=== PATIENT | male | born 1970 | race Caucasian/White ===

== ENCOUNTER 2018-09-11 10:44 | Inpatient (IN) | payer MEDICAID ==
[~2018-09-11 10:44] MED LIST: Levofloxacin 500mg/100mL 500 MG/100 ML BAG IV SCH
[2018-09-11] MEDS ORDERED: Ciprofloxacin 400mg Premix PB 400 MG/200 ML BAG IV ONE ×2 (11:28→11:49)
[2018-09-11 11:59] LABS: HEMATOCRIT 53.8 % (41.0-60); HEMOGLOBIN 17.7 gm/dL (12-16); MEAN CELL VOLUME 84.3 fl (80-99); MEAN CORPUSCULAR HEMOGLOBIN 27.6 pg (26.0-30.0); MEAN CORPUSCULAR HGB CONC 32.8 pg (28.0-36.0); MEAN PLATELET VOLUME 8.4 fl; PLATELET COUNT 203 Th/cmm (150-400); RED BLOOD COUNT 6.39 Mil/cmm (4.30-5.70); RED CELL DISTRIBUTION WIDTH 16.3 % (11.5-20.0); WHITE BLOOD COUNT 11.4 Th/cmm (4.8-10.8)
[2018-09-11 12:01] LABS: URINE SOURCE CATH
[2018-09-11 12:03] LABS: URINE BILIRUBIN NEGATIVE (NEGATIVE); URINE BLOOD LARGE (NEGATIVE); URINE GLUCOSE (UA) NEGATIVE (NEGATIVE); URINE KETONE NEGATIVE (NEGATIVE); URINE LEUKOCYTE ESTERASE LARGE (NEGATIVE); URINE MICROSCOPIC INDICATED? YES; URINE NITRATE POSITIVE (NEGATIVE); URINE PH 8.5 (4.6 - 8.0); URINE PROTEIN >=300 mg/dL (NEGATIVE); URINE UROBILINOGEN 0.2 E.U./dL (0.2 - 1.0)
[2018-09-11 12:13] LABS: URINE COLOR YELLOW
[2018-09-11 12:14] LABS: ANION GAP 13.8 (7.0-16.0); CALCIUM SERUM 10.9 mg/dL (8.6-10.3); CARBON DIOXIDE 19.9 mEq/L (21.0-31.0); CREATININE - SERUM 2.1 mg/dL (0.7-1.3); GFR AFRICAN-AMERICAN 43.2 ml/min (>90); GFR NON AFRICAN-AMERICAN 35.7 ml/min; POTASSIUM SERUM 4.7 mEq/L (3.5-5.1)
[2018-09-11 12:14] LABS: URINE CLARITY CLOUDY (CLEAR)
[2018-09-11 12:15] LABS: URINE RBC 0-2 /hpf (0-5)
[2018-09-11 12:16] LABS: URINE BACTERIA MANY /hpf (NONE SEEN); URINE EPITHELIAL CELLS NONE SEEN /lpf (FEW)
[2018-09-11] MEDS ORDERED: Lactated Ringer 1,000 ML IV ONE (12:57)
[2018-09-11 13:07] LABS: BAND NEUTROPHILE 0 % (0-10); EOSINOPHIL 1 % (0-5); LYMPHOCYTE 10 % (20-50); MONOCYTE 5 % (2-10); NEUTROPHILS 84 % (40-80)
--- NOTE | 2018-09-11 13:16 | ED Physician Chart ---
ED Chief Complaint/HPI - Patient Information Date Seen:: 09/11/18 Time Seen:: 10:57 Chief Complaint:: suprapubic tube not working History of Present Illness:: suprapubic tube not working since last night. patient is writhing in pain (even though he doesn't communicate alot). When I pressed on his lower abdomen, he nodded and verbalized yes to pain. H/o multi-resistant UTI's. Allergies:: Allergies Allergy/AdvReac Type Severity Reaction Status Date / Time No Known Allergies Allergy Verified 09/11/18 10:57 Vitals:: Vital Signs - 8 hr 09/11/18 09/11/18 10:57 12:46 Temp 98.5 F HR 101 98 RR 18 16 BP 115/98 126/75 O2 Sat % 98 97 Historian:: Medical Records Review:: Nurse's Note Reviewed, Transfer documents Reviewed ED Review of Systems - Review of Systems General/Constitutional: No fever, No chills, No weight loss, No weakness, No diaphoresis, No edema, No loss of appetite Skin: Other (stage I decubitus (sacral)) Head: No headache, No light-headedness Eyes: No loss of vision, No pain, No diplopia ENT: No earache, No nasal drainage, No sore throat, No tinnitus Neck: No neck pain, No swelling, No thyromegaly, No stiffness, No mass noted Cardio Vascular: No chest pain, No palpitations, No PND, No orthopnea, No edema Pulmonary: No SOB, No cough, No sputum, No wheezing GI: No nausea, No vomiting, No diarrhea, No pain, No melena, No hematochezia, No constipation, No hematemesis G/U: Other (urinary retention from a non-functioning suprapubic tube) Musculoskeletal: No bone or joint pain, No back pain, No muscle pain Endocrine: Polyuria Psychiatric: No prior psych history, No depression, No anxiety, No suicidal ideation Hematopoietic: No bruising, No lymphadenopathy Allergic/Immuno: No urticaria, No angioedema Neurological: No syncope, No focal symptoms, No weakness, No paresthesia, No headache, No seizure, No dizziness, No confusion, No vertigo ED Past Medical History - Past Medical History Obtainable: No Past Medical History: HTN, CHF, CVA/TIA, Dyslipidemia, PUD/GERD, Other (BPH; dysphagia; hemiplegia; chronic kidney disease; anemia; atrial fibrillation; subarachnoid hemorrhage) Family Medical History - Family Member Mother History Unknown: Yes ED Physical Exam - Physical Examination General/Constitutional: Awake, Well-developed, well-nourished, Non-toxic appearing Other Gen/Cons comments:: overweight Eyes: Lids, conjuctiva normal, PERRL, EOMI Other Skin comments:: stage I sacral decubitus ENMT: External ears, nose nl Neck: Nontender, No nuchal rigidity Respiratory: Nl effort/Exclusion, Clear to Auscultation, No Wheeze/Rhonchi/Rales Cardio Vascular: No murmur, gallop, rubs Other Cardio Vascular comments:: irregularly irregular Other GI comments:: tenderness in the lower abdomen with palpation. resolved after replacement of the suprapubic tube. Extremities: No tenderness or effusion Neuro/Psych: Mood normal Other Neuro/Psych comments:: left sided weakness Other Misc comments:: stage I sa ED Labs/Radiology/EKG Results - Lab Results Results: Laboratory Tests 09/11/18 09/11/18 09/11/18 11:25 11:40 11:40 WBC 11.4 H RBC 6.39 H Hgb 17.7 Hct 53.8 MCV 84.3 MCH 27.6 MCHC Differential 32.8 RDW 16.3 Plt Count 203 MPV 8.4 Add Manual Diff YES Band Neutrophils % 0 Neutrophils (Manual) 84 H Lymphocytes 10 L Monocytes 5 Eosinophils 1 Sodium 136 Potassium 4.7 Chloride 107 Carbon Dioxide 19.9 L Anion Gap 13.8 BUN 31 H Creatinine 2.1 H Est GFR ( Amer) 43.2 Est GFR (Non-Af Amer) 35.7 BUN/Creatinine Ratio 14.8 Glucose 121 H Calcium 10.9 H Urine Source CATH Urine Color YELLOW Urine Clarity CLOUDY Urine pH 8.5 Ur Specific Dickson 1.015 Urine Protein >=300 Urine Glucose (UA) NEGATIVE Urine Ketones NEGATIVE Urine Blood LARGE H Urine Nitrate POSITIVE H Urine Bilirubin NEGATIVE Urine Urobilinogen 0.2 Ur Leukocyte Esterase LARGE H Urine RBC 0-2 H Urine WBC 10-25 H Ur Epithelial Cells NONE SEEN Urine Bacteria MANY H ED Assessment - Assessment General Assessment: EKG from 11:37:34 a.m.: atrial fibrillation, flipped t wave in I, AVL, V5 and V6. - Procedures Procedures:: Replacement of suprapubic tube with a 16 azeri maria. Replaced without any complications after betadine prep. Patient said "no pain" after the suprapubic tube was replaced. 300 cc of putrid , pus-like urine came out onto bed under pressure before suprapubic tube was replaced and a subsequent 600 cc amount of urine came out. ED Septic Shock - . Is Septic Shock (SBP<90, OR Lactate>4 mmol\\L) present?: No - <6hrs of presentation: Vital Signs: Vital Signs - 8 hr 09/11/18 09/11/18 10:57 12:46 Temp 98.5 F HR 101 98 RR 18 16 BP 115/98 126/75 O2 Sat % 98 97 ED Reassessment (Disposition) - Reassessment Reassessment Condition:: Improved - Diagnosis Diagnosis:: Urinary retention from a clogged off suprapubic tube which was changed by ER Kori ESBL positive urine Multi-resistant UTI which looks more like pus than urine Chronic kidney disease with worsening BUN and creatinine most probably secondary to above Leukocytosis Atrial fibrillation Congestive heart failure history HTN Subarachnoid hemorrhage BPH Hyperlipidemia GERD Dysphagia Hemiplegia CVA - Patient Disposition Discharge/Transfer:: Acute Care w/in this hosp Admitted to:: Telemetry Condition at Disposition:: Stable, Improved
[2018-09-11] MEDS ORDERED: Piperacillin Sodium/Tazobact 3.375 gm Vial IV ONE (14:04)
[2018-09-11] MEDS ORDERED: Sodium Chloride 0.9% 1,000 ML IV ONE (14:07)
[2018-09-11] MEDS ORDERED: D5-0.45NS 1,000 ML IV SCH ×2 (16:08→18:15)
[2018-09-11] MEDS ORDERED: Piperacillin Sodium/Tazobact 2.25 gm Vial IV ONE (17:19)
--- NOTE | 2018-09-11 22:56 | History & Physical ---
ADMIT DATE: 09/11/2018 HISTORY OF PRESENT ILLNESS: This 48-year-old male was seen and examined at the courtesy of Dr. Harry. The patient was transferred here from the [facility] home [facility] subacute. He was evaluated in the Emergency Room and then admitted. The patient was apparently confused. He has history of multiple problems. 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 Also found to have urinary tract infection. Apparently, there is no history of diabetes. No chest pains. No history of PND, no history of orthopnea, no history of cough, no history of fever, no history of hemoptysis, no history of abdominal pain, bilateral lower back pain. No rigidity, no guarding and no organomegaly. Bowel sounds normal. No hematuria. PHYSICAL EXAMINATION: VITAL SIGNS: Heart rate was 84, blood pressure was 119/68, temperature 98.2, respirations 18, O2 saturation 96%. SKIN: Normal. HEAD: Normocephalic. EYES: Conjunctivae pink. There is no icterus in the eyes. Pupils reacting to light. NECK: There is no increased jugular venous distention, no thyromegaly, no lymphadenopathy. Carotids equal both sides. CHEST: Bilaterally symmetrical, moved well with respiration. Respiratory movements equal both sides. Trachea is central. There is note to percussion. Breath sound, few scattered rales. CARDIOVASCULAR SYSTEM: PMI not well localized, there is no positional thrill. No parasternal heave. S1 normal, S2 physiologic. There was no S3, no rub. ABDOMEN: Soft, no tenderness, no rigidity, no guarding and no organomegaly. Bowel sounds normal. EXTREMITIES: There is no calf tenderness. LABORATORY DATA: WBC count was 11.4, RBC 6.39, hemoglobin 17.7, hematocrit 53.8, platelet count was 203. Neutrophils 84%. Sodium 136, potassium 4.7, chloride 107, carbon dioxide 19.9, BUN 31, creatinine 2.1, GFR about 35.7, glucose 121, calcium 10.9. Urine showed urinary produce more than 300, urine blood large, urine nitrite was positive. Leukocyte esterase large, WBC was 10-25. EKG shows atrial fibrillation with moderate ventricular response. IMPRESSION: Atrial fibrillation with moderate ventricular response, history of hypertension, urinary tract infection, chronic kidney disease, nephropathy, confusion, BPH, old cerebrovascular accident with hemiparesis, decubitus ulcers on bilateral buttocks. We will suggest to continue present management, antibiotic as per PMD. We will get echocardiogram to evaluate left ventricular function and valvular structure. We will also get lipid profile. In the meantime, we will put him on his Eliquis as he was taking before. Also put him on Lipitor. The patient has history of hypertension and strokes. Lipid profile in a.m. BMP, BNP in a.m. and CBC. We will follow with you as needed. JOB# [id number]
[2018-09-12] MEDS ORDERED: Piperacillin Sodium/Tazobact 2.25 gm Vial IV ONE ×2 (00:07→05:53)
[2018-09-12 05:12] LABS: CHOLESTEROL 100 mg/dL (<200); HDL -HIGH DENSITY LIPOPROTEIN 34 mg/dL (23-92); TRIGLYCERIDES 84 mg/dL (<150)
[2018-09-12 07:36] LABS: % BASOPHILS 1.2 % (0.0-2.0); % EOSINOPHILS 3.1 % (0.0-5.0); % LYMPHOCYTES 24.4 % (20.0-50.0); % MONOCYTES 7.7 % (2.0-10.0); % NEUTROPHILS 63.6 % (40.0-80.0); BASOPHILE ABSOLUTE 0.1 Th/cumm (0-0.2); EOSINOPHILE ABSOLUTE 0.2 Th/cmm (0.1-0.4); HEMATOCRIT 48.1 % (41.0-60); HEMOGLOBIN 16.1 gm/dL (12-16); LYMPHOCYTE ABSOLUTE 1.8 Th/cmm (1.5-3.0); MEAN CELL VOLUME 84.3 fl (80-99); MEAN CORPUSCULAR HEMOGLOBIN 28.2 pg (26.0-30.0); MEAN CORPUSCULAR HGB CONC 33.4 pg (28.0-36.0); MEAN PLATELET VOLUME 9.4 fl; MONOCYTE ABSOLUTE 0.6 Th/cmm (0.3-1.0); NEUTROPHILE ABSOLUTE 4.7 Th/cmm (1.8-8.0); PLATELET COUNT 168 Th/cmm (150-400); RED CELL DISTRIBUTION WIDTH 16.5 % (11.5-20.0); WHITE BLOOD COUNT 7.4 Th/cmm (4.8-10.8)
[2018-09-12 07:47] LABS: ANION GAP 15.1 (7.0-16.0); CALCIUM SERUM 10.3 mg/dL (8.6-10.3); CARBON DIOXIDE 20.2 mEq/L (21.0-31.0); CREATININE - SERUM 1.9 mg/dL (0.7-1.3); GFR AFRICAN-AMERICAN 48.5 ml/min (>90); GFR NON AFRICAN-AMERICAN 40.1 ml/min; POTASSIUM SERUM 4.3 mEq/L (3.5-5.1)
[2018-09-12] MEDS ORDERED: Non-Formulary Item 1 EA (Apixaban [Eliquis] 2.5 MG) PO SCH (09:00)
[2018-09-12] MEDS: Atorvastatin Calcium 10 MG TAB PO SCH (09:46)
--- NOTE | 2018-09-12 11:57 | History & Physical ---
ADMIT DATE: HISTORY OF PRESENT ILLNESS: The patient came to the Emergency Room complaining of severe suprapubic pain. The patient has a suprapubic catheter, was found to have a severe UTI and the patient was admitted. The patient is known to have a history of CHF, history of atrial fibrillation, history of CVA, history of GERD, history of BPH and acute and chronic kidney disease and atrial fibrillation, history of subarachnoid hemorrhage. The patient was given antibiotics, was admitted. The patient complaining of suprapubic pain as otherwise complaining of no chest pain, no abdominal pain, no bruising. REVIEW OF SYSTEMS: Negative. PAST MEDICAL HISTORY: Hypertension, CVA, history of congestive heart failure, hyperlipidemia, peptic ulcer disease, BPH, dysphagia, chronic kidney disease, anemia, atrial fibrillation, subarachnoid hemorrhage. PHYSICAL EXAMINATION: GENERAL: The patient on examination was awake, alert. VITAL SIGNS: Stable. HEAD: Normal. ENT: Normal. LUNGS: Bilaterally clear. CARDIOVASCULAR SYSTEM: S1, S2 heard. ABDOMEN: Soft. No suprapubic catheter noted. LABORATORY DATA: White count was 11.4, slightly elevated and his urine ____ was positive, and large leukocyte esterase was positive, WBC was positive evidence of urinary infection. The patient #1 dislodged, clogged suprapubic catheter, urinary retention, acute urinary infection, ESBL positive, multidrug resistant UTI and increasing BUN and creatinine, acute on chronic kidney disease, leukocytosis, atrial fibrillation, history of congestive heart failure, history of hypertension, history of CVA in the past, history of hyperlipidemia, history of BPH, anemia, atrial fibrillation, history of subarachnoid hemorrhage. The patient is going to be admitted and I will follow giving IV antibiotic. Dr. Streeter will see the patient for ID and Cardiology, Dr. Bob Streeter and will follow the patient. JOB# [id number]
[2018-09-12] MEDS ORDERED: D5-0.45NS 1,000 ML IV SCH (14:15)
[2018-09-12] MEDS: Hydrocodone/APAP 5mg/325mg Tab PO PRN (21:49)
--- NOTE | 2018-09-13 00:59 | Consultation ---
DATE OF CONSULTATION: 09/12/2018 ATTENDING PHYSICIAN: Dr. Sandra Harry. MET[employer] SUPERVISOR: Dr. Popeye Chilel. REASON FOR CONSULTATION: Worsening kidney function, electrolyte imbalance, and fluid management. HISTORY OF PRESENT ILLNESS: This is a 48-year-old male with past medical history of chronic kidney disease, who came in because of lower abdominal pain. A few hours prior to admission, the patient complained of worsening lower abdominal pain. He could no longer tolerate this and patient was brought to the Emergency Room. His white count was 11.4 with a temperature of 98.5 degrees. The ED physician replaced his suprapubic tube. Pus came out after the old SPT was removed. Then, 600 mL of urine came out. The pain was then relieved with new SPT. His urinalysis was suggestive of a UTI. Three weeks prior to admission, the patient had labs drawn, which revealed a BUN/creatinine of 27/1.69. He was admitted at this time with the BUN/creatinine of 31/2.1. He has no history of nausea and vomiting as well as diarrhea. PAST MEDICAL HISTORY: 1. Chronic kidney disease. 2. Status post ESBL Escherichia coli complicated urinary tract infection. 3. Essential hypertension. 4. Coronary artery disease. 5. Anemia of chronic disease. 6. Nontraumatic subarachnoid hemorrhage. 7. BPH. 8. Dyslipidemia. 9. GERD. 10. Dysphagia. 11. Status post CVA with hemiplegia and paresis. 12. Urinary retention secondary to BPH. 13. Chronic atrial fibrillation. PAST SURGICAL HISTORY: Status post SPT. CURRENT MEDICATIONS: He is now on acetaminophen, amlodipine, atorvastatin, bisacodyl, metoprolol, rivaroxaban, Zosyn. ALLERGIES: No known drug allergies. SOCIAL AND FAMILY HISTORY: I was not able to obtain from the patient because of difficulty communicating with him. REVIEW OF SYSTEMS: Again, I was not able to decipher directly from the patient because of the same reason. PHYSICAL EXAMINATION: GENERAL: The patient is awake, slightly agitated, not in distress. VITAL SIGNS: Blood pressure is 143/103, pulse 93, temperature 99.3 degrees. SKIN: Poor turgor, warm, no rash, no jaundice appreciated. He has a large nevus on his right arm. HEENT: Head normocephalic, atraumatic. Eyes: Extraocular muscles intact. Pupils equal, round, reactive to light and accommodates. Anicteric sclerae. Pale conjunctivae. Nose, midline nasal septum. Mouth: Dry mucosa. Poor dentition. NECK: Supple, no adenopathy, no thyromegaly, no bruits. Trachea palpated in the midline. CHEST AND CARDIOVASCULAR: S1, S2. No rub, murmur, or gallop appreciated. Point of maximal impulse fifth intercostal space, left midclavicular line. No abdominal or femoral bruits appreciated. LUNGS: Equal expansion, minimal use of accessory muscles. No supraclavicular retraction. Scattered coarse rhonchi, but no rales nor wheezes appreciated. ABDOMEN: Globular, soft, positive for bowel sounds. No bruits either diastolic or systolic, presence of right lower quadrant suprapubic tube without any drainage. No discharge or bleed. RECTAL: The patient refused. GENITOURINARY: Normal appearing male genitalia. MUSCULOSKELETAL: No effusions present in his joints, but unable to assess his range of motion. EXTREMITIES: No evidence of any edema, cyanosis nor clubbing with palpable femoral, popliteal, and dorsalis pedis pulses. NEUROLOGIC: The patient is alert, verbal, motor is 5/5. Cranial nerves 2-12 intact. Sensory intact. LABORATORY DATA AND STUDIES: Labs did reveal white count 7.4, hemoglobin 16.1, hematocrit 48.1, platelets 168. Sodium 141, potassium 4.3, chloride 110, bicarb 20.2, BUN 31, creatinine 1.9, glucose 85. BNP 40. IMPRESSION: 1. Acute kidney injury on chronic kidney disease, MDRD GFR of 35.7 mL per minute, stage 3. The patient has had a history of hypertension for several years, which could have given rise to hypertensive nephrosclerosis and the cause of his chronic kidney disease. Acute component is likely due to ongoing urinary retention, which was relieved by removing the old suprapubic tube with copious amount of pus. The patient also has recurring interstitial nephritis, which could eventually cause damage giving rise to chronic interstitial nephritis. 2. Abdominal pain secondary to occluded SVT. 3. Recurrent complicated urinary tract infection secondary to ongoing urinary retention and a foreign objects such as SVT. 4. Status post ESBL Escherichia coli complicated urinary tract infection. 5. Essential hypertension with chronic kidney disease. 6. Coronary artery disease. 7. Anemia of chronic disease. 8. Nontraumatic subarachnoid hemorrhage. 9. Benign prostatic hypertrophy. 10. Dyslipidemia. 11. Dysphagia. 12. Status post cerebrovascular accident with hemiplegia and possible paresis. 13. Urinary retention secondary to benign prostatic hypertrophy 14. Chronic atrial fibrillation. PLAN: 1. Continue with IV hydration. 2. Request for renal ultrasound. 3. Follow up cultures and appropriate antibiotics. 4. Urine sodium, eosinophils, and creatinine. 5. Urine microalbumin to creatinine ratio. 6. Follow up electrolytes. 7. Increase BP meds due to elevated blood pressure. Thank you, Dr. Harry, for this consult. We will follow the patient closely with you. JOB# [id number]
[2018-09-13 04:53] LABS: % EOSINOPHILS 4.3 % (0.0-5.0); % LYMPHOCYTES 33.8 % (20.0-50.0); % NEUTROPHILS 52.9 % (40.0-80.0); BASOPHILE ABSOLUTE 0.1 Th/cumm (0-0.2); EOSINOPHILE ABSOLUTE 0.3 Th/cmm (0.1-0.4); HEMATOCRIT 47.9 % (41.0-60); HEMOGLOBIN 16.1 gm/dL (12-16); LYMPHOCYTE ABSOLUTE 2.1 Th/cmm (1.5-3.0); MEAN CELL VOLUME 83.8 fl (80-99); MEAN CORPUSCULAR HEMOGLOBIN 28.3 pg (26.0-30.0); MEAN CORPUSCULAR HGB CONC 33.7 pg (28.0-36.0); MEAN PLATELET VOLUME 8.3 fl; MONOCYTE ABSOLUTE 0.5 Th/cmm (0.3-1.0); NEUTROPHILE ABSOLUTE 3.2 Th/cmm (1.8-8.0); PLATELET COUNT 183 Th/cmm (150-400); RED BLOOD COUNT 5.71 Mil/cmm (4.30-5.70); RED CELL DISTRIBUTION WIDTH 15.8 % (11.5-20.0); WHITE BLOOD COUNT 6.2 Th/cmm (4.8-10.8)
[2018-09-13 05:06] LABS: ALB/GLOB RATIO 1.1 (1.0-1.8); ALBUMIN 3.4 gm/dL (4.2-5.5); ANION GAP 10.7 (7.0-16.0); BILIRUBIN,TOTAL 1.2 mg/dL (0.3-1.0); CALCIUM SERUM 10.3 mg/dL (8.6-10.3); CARBON DIOXIDE 23.5 mEq/L (21.0-31.0); CREATININE - SERUM 1.7 mg/dL (0.7-1.3); GFR AFRICAN-AMERICAN 55.1 ml/min (>90); GFR NON AFRICAN-AMERICAN 45.6 ml/min; MAGNESIUM 2.1 mg/dL (1.9-2.7); PHOSPHOROUS 2.7 mg/dL (2.5-5.0); POTASSIUM SERUM 4.2 mEq/L (3.5-5.1); TOTAL PROTEIN,SERUM 6.5 gm/dL (6.0-8.3)
[2018-09-13 06:17] LABS: EOSINOPHIL SMEAR SOURCE URINE
[2018-09-13 06:18] LABS: EOSINOPHILS SMEAR COUNT NONE SEEN (NONE SEEN)
[2018-09-13] MEDS: Hydrocodone/APAP 5mg/325mg Tab PO PRN (06:37)
[2018-09-13] MEDS: Atorvastatin Calcium 10 MG TAB PO SCH (08:09)
--- NOTE | 2018-09-13 08:17 | Diagnostic Imaging Report ---
Renal ultrasound HISTORY: Acute on chronic renal failure COMPARISON: None Technique: Sonography of the kidneys and urinary bladder was performed in multiple planes. FINDINGS: Exam is limited due to body habitus and bowel gas. The right kidney measures 9.5 x 5.0 cm. The left kidney measures 10.5 x 5.4 cm. The renal margins are poorly defined limiting assessment for focal lesions. No hydronephrosis. Elevated postvoid residual bowel wall edema 86 mL is noted. Urinary bladder wall thickening is noted measuring up to 8 mm. IMPRESSION: Limited exam due to body habitus and bowel gas. No evidence of hydronephrosis. Elevated post void residual bladder volumes 86 mL. There is also urinary bladder wall thickening. Please correlate clinically for infectious/inflammatory process or bladder outlet obstruction.
--- NOTE | 2018-09-13 12:09 | Infectious Disease Prog Note ---
Infectious Disease Subjective - Review of Systems Service Date: 09/13/18 Subjective: There is no new change, no fever. Infectious Disease Objective - Results Result Diagrams: 09/13/18 04:15 09/13/18 04:15 Recent Labs: Laboratory Last Values WBC 6.2 Th/cmm (4.8-10.8) 09/13/18 04:15 RBC 5.71 Mil/cmm (4.30-5.70) H 09/13/18 04:15 Hgb 16.1 gm/dL (12-16) 09/13/18 04:15 Hct 47.9 % (41.0-60) 09/13/18 04:15 MCV 83.8 fl (80-99) 09/13/18 04:15 MCH 28.3 pg (26.0-30.0) 09/13/18 04:15 MCHC Differential 33.7 pg (28.0-36.0) 09/13/18 04:15 RDW 15.8 % (11.5-20.0) 09/13/18 04:15 Plt Count 183 Th/cmm (150-400) 09/13/18 04:15 MPV 8.3 fl 09/13/18 04:15 Add Manual Diff YES 09/11/18 11:40 Neutrophils % 52.9 % (40.0-80.0) 09/13/18 04:15 Band Neutrophils % 0 % (0-10) 09/11/18 11:40 Lymphocytes % 33.8 % (20.0-50.0) 09/13/18 04:15 Monocytes % 8.0 % (2.0-10.0) 09/13/18 04:15 Eosinophils % 4.3 % (0.0-5.0) 09/13/18 04:15 Basophils % 1.0 % (0.0-2.0) 09/13/18 04:15 Neutrophils (Manual) 84 % (40-80) H 09/11/18 11:40 Lymphocytes 10 % (20-50) L 09/11/18 11:40 Monocytes 5 % (2-10) 09/11/18 11:40 Eosinophils 1 % (0-5) 09/11/18 11:40 Eos Smear Source URINE 09/13/18 00:15 Eos Smear Total Cells NONE SEEN (NONE SEEN) 09/13/18 00:15 Sodium 139 mEq/L (136-145) 09/13/18 04:15 Potassium 4.2 mEq/L (3.5-5.1) 09/13/18 04:15 Chloride 109 mEq/L (98-107) H 09/13/18 04:15 Carbon Dioxide 23.5 mEq/L (21.0-31.0) 09/13/18 04:15 Anion Gap 10.7 (7.0-16.0) 09/13/18 04:15 BUN 27 mg/dL (7-25) H 09/13/18 04:15 Creatinine 1.7 mg/dL (0.7-1.3) H 09/13/18 04:15 Est GFR ( Amer) 55.1 ml/min (>90) 09/13/18 04:15 Est GFR (Non-Af Amer) 45.6 ml/min 09/13/18 04:15 BUN/Creatinine Ratio 15.9 09/13/18 04:15 Glucose 96 mg/dL (70-105) 09/13/18 04:15 Calcium 10.3 mg/dL (8.6-10.3) 09/13/18 04:15 Phosphorus 2.7 mg/dL (2.5-5.0) 09/13/18 04:15 Magnesium 2.1 mg/dL (1.9-2.7) 09/13/18 04:15 Total Bilirubin 1.2 mg/dL (0.3-1.0) H 09/13/18 04:15 AST 12 U/L (13-39) L 09/13/18 04:15 ALT 13 U/L (7-52) 09/13/18 04:15 Alkaline Phosphatase 56 U/L (34-104) 09/13/18 04:15 B-Natriuretic Peptide 40.0 pg/mL (5.0-100.0) 09/12/18 04:15 Total Protein 6.5 gm/dL (6.0-8.3) 09/13/18 04:15 Albumin 3.4 gm/dL (4.2-5.5) L 09/13/18 04:15 Globulin 3.1 gm/dL 09/13/18 04:15 Albumin/Globulin Ratio 1.1 (1.0-1.8) 09/13/18 04:15 Triglycerides 84 mg/dL (<150) 09/12/18 04:15 Cholesterol 100 mg/dL (<200) 09/12/18 04:15 LDL Cholesterol Direct 64 mg/dL (75-193) L 09/12/18 04:15 HDL Cholesterol 34 mg/dL (23-92) 09/12/18 04:15 TSH 2.68 uIU/ml (0.34-5.60) 09/13/18 04:15 Urine Source CATH 09/11/18 11:25 Urine Color YELLOW 09/11/18 11:25 Urine Clarity CLOUDY (CLEAR) 09/11/18 11:25 Urine pH 8.5 (4.6 - 8.0) 09/11/18 11:25 Ur Specific [place] 1.015 (1.005-1.030) 09/11/18 11:25 Urine Protein >=300 mg/dL (NEGATIVE) 09/11/18 11:25 Urine Glucose (UA) NEGATIVE mg/dL (NEGATIVE) 09/11/18 11:25 Urine Ketones NEGATIVE mg/dL (NEGATIVE) 09/11/18 11:25 Urine Blood LARGE (NEGATIVE) H 09/11/18 11:25 Urine Nitrate POSITIVE (NEGATIVE) H 09/11/18 11:25 Urine Bilirubin NEGATIVE (NEGATIVE) 09/11/18 11:25 Urine Urobilinogen 0.2 E.U./dL (0.2 - 1.0) 09/11/18 11:25 Ur Leukocyte Esterase LARGE (NEGATIVE) H 09/11/18 11:25 Urine RBC 0-2 /hpf (0-5) H 09/11/18 11:25 Urine WBC 10-25 /hpf (0-5) H 09/11/18 11:25 Ur Epithelial Cells NONE SEEN /lpf (FEW) 09/11/18 11:25 Urine Bacteria MANY /hpf (NONE SEEN) H 09/11/18 11:25 Ur Random Sodium 136 mmol/L 09/13/18 00:15 Urine Creatinine 57.0 mg/dl (39.0-259.0) 09/13/18 00:15 - Physical Exam Vitals and I&O: Vital Signs Temp 98.6 F 09/13/18 07:56 Pulse 89 09/13/18 08:10 Resp 18 09/13/18 08:00 BP 162/113 09/13/18 08:10 Pulse Ox 96 09/13/18 07:56 Intake & Output 09/12/18 09/13/18 09/13/18 18:59 06:59 18:59 Intake Total 100 50 250 Output Total 1300 1300 1500 Balance -1200 -1250 -1250 Weight (lbs) 116.12 kg 117.889 kg 117.48 kg Intake: Intake, IV Amount 100 50 Piperacillin Sodium/ 100 50 Tazobact 2.25 gm In Sodium Chloride 0.9% 50 ml @ 100 mls/hr IV Q6HR [facility] Rx#:[id number] Oral 250 Output: Urine 1300 1300 1300 Stool 0 Other 200 Other: # Bowel Movements 1 0 Weight Source Bedscale Bedscale Bedscale Active Medications: Current Medications Acetaminophen (Tylenol) 650 mg PO Q4H PRN PRN Reason: Fever >101 Stop: 11/11/18 03:58 Acetaminophen/Hydrocodone Bitart ([place] 5mg/325mg) 1 tab PO Q6H PRN PRN Reason: Pain (Moderate) Stop: 11/11/18 21:00 Last Admin: 09/13/18 06:37 Dose: 1 tab Amlodipine Besylate (Norvasc) 5 mg PO BID [facility] Stop: 11/11/18 21:29 Last Admin: 09/13/18 08:09 Dose: 5 mg Atorvastatin Calcium (Lipitor) 20 mg PO DAILY [facility]; Protocol Stop: 11/11/18 08:59 Last Admin: 09/13/18 08:09 Dose: 20 mg Bisacodyl (Dulcolax 10 Mg Supp) 10 mg RC DAILY PRN PRN Reason: Constipation Stop: 11/10/18 22:13 Piperacillin Sod/Tazobactam (Sod 2.25 gm/ Sodium Chloride) 50 mls @ 100 mls/hr IV Q6HR [facility] Stop: 11/10/18 17:59 Last Admin: 09/13/18 06:40 Dose: 100 mls/hr Dextrose/Sodium Chloride (D5-0.45ns) 1,000 mls @ 75 mls/hr IV .[id number] [facility] Stop: 11/11/18 14:14 Last Admin: 09/12/18 16:14 Dose: 75 mls/hr Metoprolol Tartrate (Lopressor) 50 mg PO TID [facility] Stop: 11/12/18 08:59 Last Admin: 09/13/18 08:09 Dose: 50 mg Miscellaneous (Clinical Monitoring) 1 ea MC DAILY PRN PRN Reason: XARELTO Stop: 11/11/18 14:35 Rivaroxaban (Xarelto) 15 mg PO QPM [facility] Stop: 11/11/18 16:59 Last Admin: 09/12/18 18:24 Dose: 15 mg General: no acute distress, well developed, well nourished HEENT: atraumatic, normocephalic, PERRLA, EOMI Neck: supple, no thyromegaly Cardiovascular: S1S2, regular Lungs: clear to auscultation bilaterally, clear to percussion Abdomen: soft, no tender, no distended Extremities: no cyanosis, no clubbing, no edema Neurological: awake, alert, oriented Skin: intact Infectious Disease Assmt/Plan - Assessment Assessment: 1. UTI/ Cystitis. 2/2 malfunctioning [place] catheter. MDRO E coli. 2. Neurogenic bladder. 3. Chronic kidney disease. 4. Leukocytosis. Improved. 5. Atrial fibrillation 6. Congestive heart failure. 7. HTN. 8. H/o Subarachnoid hemorrhage. 9. BPH. 10. Hyperlipidemia. 11. GERD. 12. Dysphagia. 13. Hemiplegia. 14. CVA. - Plan Plan: Conitnue Zosyn for 7 days. May need bladder irrigation for 5 to 10 days. Check UA and urine cs. Nutritional Asmnt/Malnutr-PDOC - Dietary Evaluation Malnutrition Findings (Please click <Entered> for more info): Nutritional Asmnt/Malnutrition Start: 09/12/18 14: 49 Text: Status: Complete Freq: Protocol: Document 09/12/18 14:50 MEGAN (Rec: 09/12/18 15:22 MEGAN MARU-DIET) Nutritional Asmnt/Malnutrition Patient General Information Nutritional Screening High Risk Consult Diagnosis UTI Pertinent Medical Hx/Surgical Hx CHF, AFIB, CVA, PUD/GERD, BPH, CKD, subarachnoid hemorrhage, HTN, hyperlipidemia, anemia, dysphagia, hemiplegia Subjective Information Received diet consult for low dipika score. Pt's [place] speaking. RD unable to communicate w/ pt d/t language barrier. Spoke w/ Oksana ([employer]) who states pt finished 100% of breakfast today, but requires assistance. Oksana states she feels pt gets tired from chewing and may need texture modification. Per EMR, pt finished 75% dinner last night . Current Diet Order/ Nutrition Support [facility] soft chopped, MANUELITO, CCHO Pertinent Medications lipitor, D5-0.45ns, piperacilin, xarelto Pertinent Labs 09/12: Cl 110, glucose 85, BUN 31, Cr 1.9, Ca 10.3, GFR (non -Af Amer) 40.1 09/11: Cl 107, glucose 121, BUN 31, Cr 2.1, Ca 10.9, GFR ( non-Af Amer) 35.7 Nutritional Hx/Data Height 1.73 m Height (Calculated Centimeters) 172.7 Current Weight (lbs) 116.12 kg Weight (Calculated Kilograms) 116.1 Weight (Calculated Grams) 567875.6 [place] Body Weight 154 lb Body Mass Index (BMI) 38.9 Weight Status Obese GI Symptoms GI Symptoms None Last BM none noted Difficult in: None Skin Integrity/Comment: pressure area to buttocks and left upper thigh, reddened rt/ lt foot, discoloration to rt arm and rt heel Current %PO Good (75-100%) Estimated Nutritional Goals BEE in Kcals: Adj wt of IBW Calories/Kcals/Kg 23-27 (based on adj wt 81.6 kg ) Kcals Calculated 6451-8613 Protein: Adj wt of IBW Protein g/k.6-0.8 (based on adj wt 81.6 kg) Protein Calculated 49-65 g (monitor renal labs) Fluid: ml 4082-9759 (1 ml/kcal) Nutritional Problem 1. Problem Problem Altered nutrition related lab values Etiology renal dysfunction Signs/Symptoms: BUN 31, Cr 1.9 Malnutrition Alert Is there a minimum of two criteria No selected? Query Text:Check all the applicable criteria. A minimum of two criteria are recommended for diagnosis of either severe or non-severe malnutrition. Malnutrition Related to Morbid Obesity Malnutrition related to morbid obesity No Intervention/Recommendation Comments 1. Modify diet texture to [facility] soft ground so pt can chew more easily 2. Continue with MANUELITO and CCHO diet as ordered, but consider checking HgA1C to assess need for CCHO diet 3. Limit protein intake to 65 gm per day by offering half portions of meat at all meals 4. Monitor PO intake, wt, nutrition related labs, and skin integrity 5. F/U as high risk in 2-3 days, 09/14-09/15 Expected Outcomes/Goals Expected Outcomes/Goals 1. PO intake to continue meeting at least 75% of all meals 2. Wt stability, skin integrity to improve, and nutrition related labs to approach normal limits Reviewed by Anne Marie Hoyt RD
--- NOTE | 2018-09-13 14:00 | General Progress Note ---
Subjective - Review of Systems Service Date: 09/13/18 Subjective: awake, verbal, comfortable Objective - Results Result Diagrams: 09/13/18 04:15 09/13/18 04:15 Recent Labs: Laboratory Last Values WBC 6.2 Th/cmm (4.8-10.8) 09/13/18 04:15 RBC 5.71 Mil/cmm (4.30-5.70) H 09/13/18 04:15 Hgb 16.1 gm/dL (12-16) 09/13/18 04:15 Hct 47.9 % (41.0-60) 09/13/18 04:15 MCV 83.8 fl (80-99) 09/13/18 04:15 MCH 28.3 pg (26.0-30.0) 09/13/18 04:15 MCHC Differential 33.7 pg (28.0-36.0) 09/13/18 04:15 RDW 15.8 % (11.5-20.0) 09/13/18 04:15 Plt Count 183 Th/cmm (150-400) 09/13/18 04:15 MPV 8.3 fl 09/13/18 04:15 Add Manual Diff YES 09/11/18 11:40 Neutrophils % 52.9 % (40.0-80.0) 09/13/18 04:15 Band Neutrophils % 0 % (0-10) 09/11/18 11:40 Lymphocytes % 33.8 % (20.0-50.0) 09/13/18 04:15 Monocytes % 8.0 % (2.0-10.0) 09/13/18 04:15 Eosinophils % 4.3 % (0.0-5.0) 09/13/18 04:15 Basophils % 1.0 % (0.0-2.0) 09/13/18 04:15 Neutrophils (Manual) 84 % (40-80) H 09/11/18 11:40 Lymphocytes 10 % (20-50) L 09/11/18 11:40 Monocytes 5 % (2-10) 09/11/18 11:40 Eosinophils 1 % (0-5) 09/11/18 11:40 Eos Smear Source URINE 09/13/18 00:15 Eos Smear Total Cells NONE SEEN (NONE SEEN) 09/13/18 00:15 Sodium 139 mEq/L (136-145) 09/13/18 04:15 Potassium 4.2 mEq/L (3.5-5.1) 09/13/18 04:15 Chloride 109 mEq/L (98-107) H 09/13/18 04:15 Carbon Dioxide 23.5 mEq/L (21.0-31.0) 09/13/18 04:15 Anion Gap 10.7 (7.0-16.0) 09/13/18 04:15 BUN 27 mg/dL (7-25) H 09/13/18 04:15 Creatinine 1.7 mg/dL (0.7-1.3) H 09/13/18 04:15 Est GFR ( Amer) 55.1 ml/min (>90) 09/13/18 04:15 Est GFR (Non-Af Amer) 45.6 ml/min 09/13/18 04:15 BUN/Creatinine Ratio 15.9 09/13/18 04:15 Glucose 96 mg/dL (70-105) 09/13/18 04:15 Calcium 10.3 mg/dL (8.6-10.3) 09/13/18 04:15 Phosphorus 2.7 mg/dL (2.5-5.0) 09/13/18 04:15 Magnesium 2.1 mg/dL (1.9-2.7) 09/13/18 04:15 Total Bilirubin 1.2 mg/dL (0.3-1.0) H 09/13/18 04:15 AST 12 U/L (13-39) L 09/13/18 04:15 ALT 13 U/L (7-52) 09/13/18 04:15 Alkaline Phosphatase 56 U/L (34-104) 09/13/18 04:15 B-Natriuretic Peptide 40.0 pg/mL (5.0-100.0) 09/12/18 04:15 Total Protein 6.5 gm/dL (6.0-8.3) 09/13/18 04:15 Albumin 3.4 gm/dL (4.2-5.5) L 09/13/18 04:15 Globulin 3.1 gm/dL 09/13/18 04:15 Albumin/Globulin Ratio 1.1 (1.0-1.8) 09/13/18 04:15 Triglycerides 84 mg/dL (<150) 09/12/18 04:15 Cholesterol 100 mg/dL (<200) 09/12/18 04:15 LDL Cholesterol Direct 64 mg/dL (75-193) L 09/12/18 04:15 HDL Cholesterol 34 mg/dL (23-92) 09/12/18 04:15 TSH 2.68 uIU/ml (0.34-5.60) 09/13/18 04:15 Urine Source CATH 09/11/18 11:25 Urine Color YELLOW 09/11/18 11:25 Urine Clarity CLOUDY (CLEAR) 09/11/18 11:25 Urine pH 8.5 (4.6 - 8.0) 09/11/18 11:25 Ur Specific [place] 1.015 (1.005-1.030) 09/11/18 11:25 Urine Protein >=300 mg/dL (NEGATIVE) 09/11/18 11:25 Urine Glucose (UA) NEGATIVE mg/dL (NEGATIVE) 09/11/18 11:25 Urine Ketones NEGATIVE mg/dL (NEGATIVE) 09/11/18 11:25 Urine Blood LARGE (NEGATIVE) H 09/11/18 11:25 Urine Nitrate POSITIVE (NEGATIVE) H 09/11/18 11:25 Urine Bilirubin NEGATIVE (NEGATIVE) 09/11/18 11:25 Urine Urobilinogen 0.2 E.U./dL (0.2 - 1.0) 09/11/18 11:25 Ur Leukocyte Esterase LARGE (NEGATIVE) H 09/11/18 11:25 Urine RBC 0-2 /hpf (0-5) H 09/11/18 11:25 Urine WBC 10-25 /hpf (0-5) H 09/11/18 11:25 Ur Epithelial Cells NONE SEEN /lpf (FEW) 09/11/18 11:25 Urine Bacteria MANY /hpf (NONE SEEN) H 09/11/18 11:25 Ur Random Sodium 136 mmol/L 09/13/18 00:15 Urine Creatinine 57.0 mg/dl (39.0-259.0) 09/13/18 00:15 - Physical Exam Vitals and I&O: Vital Signs Temp 98.1 F 09/13/18 12:00 Pulse 113 09/13/18 13:44 Resp 18 09/13/18 12:00 BP 110/50 09/13/18 13:44 Pulse Ox 97 09/13/18 12:00 Intake & Output 09/12/18 09/13/18 09/13/18 18:59 06:59 18:59 Intake Total 100 50 300 Output Total 1300 1300 1500 Balance -1200 -1250 -1200 Weight (lbs) 116.12 kg 117.889 kg 117.48 kg Intake: Intake, IV Amount 100 50 50 Piperacillin Sodium/ 100 50 50 Tazobact 2.25 gm In Sodium Chloride 0.9% 50 ml @ 100 mls/hr IV Q6HR [facility] Rx#:[id number] Oral 250 Output: Urine 1300 1300 1300 Stool 0 Other 200 Other: # Bowel Movements 1 0 Weight Source Bedscale Bedscale Bedscale Active Medications: Current Medications Acetaminophen (Tylenol) 650 mg PO Q4H PRN PRN Reason: Fever >101 Stop: 11/11/18 03:58 Acetaminophen/Hydrocodone Bitart ([place] 5mg/325mg) 1 tab PO Q6H PRN PRN Reason: Pain (Moderate) Stop: 11/11/18 21:00 Last Admin: 09/13/18 06:37 Dose: 1 tab Amlodipine Besylate (Norvasc) 5 mg PO BID [facility] Stop: 11/11/18 21:29 Last Admin: 09/13/18 08:09 Dose: 5 mg Atorvastatin Calcium (Lipitor) 20 mg PO DAILY [facility]; Protocol Stop: 11/11/18 08:59 Last Admin: 09/13/18 08:09 Dose: 20 mg Bisacodyl (Dulcolax 10 Mg Supp) 10 mg RC DAILY PRN PRN Reason: Constipation Stop: 11/10/18 22:13 Piperacillin Sod/Tazobactam (Sod 2.25 gm/ Sodium Chloride) 50 mls @ 100 mls/hr IV Q6HR [facility] Stop: 11/10/18 17:59 Last Admin: 09/13/18 13:44 Dose: 100 mls/hr Dextrose/Sodium Chloride (D5-0.45ns) 1,000 mls @ 75 mls/hr IV .[id number] [facility] Stop: 11/11/18 14:14 Last Admin: 09/12/18 16:14 Dose: 75 mls/hr Metoprolol Tartrate (Lopressor) 50 mg PO TID [facility] Stop: 11/12/18 08:59 Last Admin: 09/13/18 13:44 Dose: 50 mg Miscellaneous (Clinical Monitoring) 1 ea MC DAILY PRN PRN Reason: XARELTO Stop: 11/11/18 14:35 Rivaroxaban (Xarelto) 15 mg PO QPM [facility] Stop: 11/11/18 16:59 Last Admin: 09/12/18 18:24 Dose: 15 mg General: Alert HEENT: Atraumatic, Mucous membr. moist/pink Neck: Supple, +2 carotid pulse wo bruit Cardiovascular: Regular rate, Normal S1, Normal S2 Lungs: Clear to auscultation Abdomen: Bowel sounds, Soft, Distended Extremities: no Edema Neurological: Sensation intact Skin: no Rash Psych/Mental Status: Mood NL Assessment/Plan - Assessment Assessment: LIZETH on CKD Abd pain 2/2 occluded SPT Cx UTI 2/2 SPT Ess Htn w/ CKD CAD Anemia on CKD - Plan Plan: Lab - Result Diagrams 09/13/18 04:15 09/13/18 04:15 Current Medications Acetaminophen (Tylenol) 650 mg PO Q4H PRN PRN Reason: Fever >101 Stop: 11/11/18 03:58 Acetaminophen/Hydrocodone Bitart ([place] 5mg/325mg) 1 tab PO Q6H PRN PRN Reason: Pain (Moderate) Stop: 11/11/18 21:00 Last Admin: 09/13/18 06:37 Dose: 1 tab Amlodipine Besylate (Norvasc) 5 mg PO BID [facility] Stop: 11/11/18 21:29 Last Admin: 09/13/18 08:09 Dose: 5 mg Atorvastatin Calcium (Lipitor) 20 mg PO DAILY [facility]; Protocol Stop: 11/11/18 08:59 Last Admin: 09/13/18 08:09 Dose: 20 mg Bisacodyl (Dulcolax 10 Mg Supp) 10 mg RC DAILY PRN PRN Reason: Constipation Stop: 11/10/18 22:13 Piperacillin Sod/Tazobactam (Sod 2.25 gm/ Sodium Chloride) 50 mls @ 100 mls/hr IV Q6HR [facility] Stop: 11/10/18 17:59 Last Admin: 09/13/18 13:44 Dose: 100 mls/hr Dextrose/Sodium Chloride (D5-0.45ns) 1,000 mls @ 75 mls/hr IV .[id number] [facility] Stop: 11/11/18 14:14 Last Admin: 09/12/18 16:14 Dose: 75 mls/hr Metoprolol Tartrate (Lopressor) 50 mg PO TID [facility] Stop: 11/12/18 08:59 Last Admin: 09/13/18 13:44 Dose: 50 mg Miscellaneous (Clinical Monitoring) 1 ea MC DAILY PRN PRN Reason: XARELTO Stop: 11/11/18 14:35 Rivaroxaban (Xarelto) 15 mg PO QPM [facility] Stop: 11/11/18 16:59 Last Admin: 09/12/18 18:24 Dose: 15 mg Lab - Result Diagrams 09/13/18 04:15 09/13/18 04:15 Kidney fnc slightly improved w/ BUN/CR of 27/1.7 FENa 2.92% suggestive of intrinsic renal cause maintain hydration encourage po intake Nutritional Asmnt/Malnutr-PDOC - Dietary Evaluation Malnutrition Findings (Please click <Entered> for more info): Nutritional Asmnt/Malnutrition Start: 09/12/18 14: 49 Text: Status: Complete Freq: Protocol: Document 09/12/18 14:50 MEGAN (Rec: 09/12/18 15:22 MEGAN [email or web address]) Nutritional Asmnt/Malnutrition Patient General Information Nutritional Screening High Risk Consult Diagnosis UTI Pertinent Medical Hx/Surgical Hx CHF, AFIB, CVA, PUD/GERD, BPH, CKD, subarachnoid hemorrhage, HTN, hyperlipidemia, anemia, dysphagia, hemiplegia Subjective Information Received diet consult for low dipika score. Pt's [place] speaking. RD unable to communicate w/ pt d/t language barrier. Spoke w/ Oksana ([employer]) who states pt finished 100% of breakfast today, but requires assistance. Oksana states she feels pt gets tired from chewing and may need texture modification. Per EMR, pt finished 75% dinner last night . Current Diet Order/ Nutrition Support [facility] soft chopped, MANUELITO, CCHO Pertinent Medications lipitor, D5-0.45ns, piperacilin, xarelto Pertinent Labs 09/12: Cl 110, glucose 85, BUN 31, Cr 1.9, Ca 10.3, GFR (non -Af Amer) 40.1 09/11: Cl 107, glucose 121, BUN 31, Cr 2.1, Ca 10.9, GFR ( non-Af Amer) 35.7 Nutritional Hx/Data Height 1.73 m Height (Calculated Centimeters) 172.7 Current Weight (lbs) 116.12 kg Weight (Calculated Kilograms) 116.1 Weight (Calculated Grams) 291703.6 [place] Body Weight 154 lb Body Mass Index (BMI) 38.9 Weight Status Obese GI Symptoms GI Symptoms None Last BM none noted Difficult in: None Skin Integrity/Comment: pressure area to buttocks and left upper thigh, reddened rt/ lt foot, discoloration to rt arm and rt heel Current %PO Good (75-100%) Estimated Nutritional Goals BEE in Kcals: Adj wt of IBW Calories/Kcals/Kg 23-27 (based on adj wt 81.6 kg ) Kcals Calculated 0360-0708 Protein: Adj wt of IBW Protein g/k.6-0.8 (based on adj wt 81.6 kg) Protein Calculated 49-65 g (monitor renal labs) Fluid: ml 4551-8732 (1 ml/kcal) Nutritional Problem 1. Problem Problem Altered nutrition related lab values Etiology renal dysfunction Signs/Symptoms: BUN 31, Cr 1.9 Malnutrition Alert Is there a minimum of two criteria No selected? Query Text:Check all the applicable criteria. A minimum of two criteria are recommended for diagnosis of either severe or non-severe malnutrition. Malnutrition Related to Morbid Obesity Malnutrition related to morbid obesity No Intervention/Recommendation Comments 1. Modify diet texture to [place] soft ground so pt can chew more easily 2. Continue with MANUELITO and CCHO diet as ordered, but consider checking HgA1C to assess need for CCHO diet 3. Limit protein intake to 65 gm per day by offering half portions of meat at all meals 4. Monitor PO intake, wt, nutrition related labs, and skin integrity 5. F/U as high risk in 2-3 days, 09/14-09/15 Expected Outcomes/Goals Expected Outcomes/Goals 1. PO intake to continue meeting at least 75% of all meals 2. Wt stability, skin integrity to improve, and nutrition related labs to approach normal limits Reviewed by Anne Marie Hoyt RD
[2018-09-13 14:25] LABS: URINE SOURCE FOLEY PORT
[2018-09-13 14:27] LABS: URINE BILIRUBIN NEGATIVE (NEGATIVE); URINE BLOOD MODERATE (NEGATIVE); URINE GLUCOSE (UA) NEGATIVE (NEGATIVE); URINE KETONE NEGATIVE (NEGATIVE); URINE LEUKOCYTE ESTERASE SMALL (NEGATIVE); URINE MICROSCOPIC INDICATED? YES; URINE NITRATE NEGATIVE (NEGATIVE); URINE PROTEIN 100 mg/dL (NEGATIVE); URINE UROBILINOGEN 0.2 E.U./dL (0.2 - 1.0)
[2018-09-13 14:54] LABS: URINE CLARITY CLEAR (CLEAR); URINE COLOR YELLOW
[2018-09-13 14:56] LABS: URINE BACTERIA 1+ /hpf (NONE SEEN); URINE EPITHELIAL CELLS FEW /lpf (FEW)
--- NOTE | 2018-09-13 22:07 | Consultation ---
DATE OF CONSULTATION: UROLOGY CONSULTATION REASON FOR CONSULTATION: Seen for urinary tract infection. HISTORY OF PRESENT ILLNESS: The patient is a 48-year-old alf resident, was admitted with complaints of Huddleston catheter not functioning well and the patient complaining about of pain in the suprapubic area and maybe some change in mental status. Since the patient has had a stroke, he is unable to communicate very well and therefore, the history is not very easy to obtain. He claims that he has had a stroke 4 years ago and a Huddleston catheter for 1 year, but I do not think this is accurate as the Huddleston catheter has eroded most of urethra down to the penoscrotal junction, which is an evidence for a very longstanding catheter treatment. He probably has a neurogenic bladder from the stroke requiring a bladder drainage with a Huddleston. PAST MEDICAL HISTORY: Consists of; 1. Hypertension. He has no diabetes. 2. 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 3. History of congestive heart failure. 4. History of dyslipidemia. 5. History of peptic ulcer disease and reflux. 6. Chronic kidney disease. 7. Chronic anemia. 8. Atrial fibrillation. 9. History of subarachnoid hemorrhage. FAMILY HISTORY: Unremarkable. HOME MEDICATIONS: Amlodipine, Eliquis, clonidine, Pepcid, hydralazine, narcotics are opioids, multiple stool softeners and laxatives, metoprolol, and Flomax. ALLERGIES: None. SURGICAL HISTORY: Unavailable. REVIEW OF SYSTEMS: 1. Altered level of consciousness difficult to quantify. 2. No headache or seizure. 3. No sore throat or vision changes. 4. No chest pain, coughing, or shortness of breath. 5. Complained of suprapubic area pain without nausea, vomiting, or diarrhea. 6. Dermatitis in both areas of the buttocks, but no decubiti. 7. Left-sided hemiplegia. PHYSICAL EXAMINATION: GENERAL: He is awake and alert. He is oriented x3, but does repeat the same sentences over and over again and communicates better in Bangladeshi than Italian. VITAL SIGNS: Temperature 98.6, heart rate 84, and blood pressure 162/113, which required additional treatment this morning. HEAD AND NECK: Normocephalic. Trachea central. Pupils equal and reactive. No jaundice. Thyroid and lymph nodes not palpable. Carotid bruit absent. CHEST: Symmetrical. LUNGS: Clear. No rales or rhonchi. HEART: Sounds normal in sinus rhythm, no murmur. ABDOMEN: Very obese, soft, nontender, no organomegaly, mass, or hernia. GENITALIA: Normal male. Huddleston catheter draining now clear urine after frequent irrigations. The urethra is eroded down to the penoscrotal junction, but the area is clean without infection. Testicles descended. No scrotal masses. EXTREMITIES: No edema or lymphadenopathy. NEUROLOGIC: Left hemiplegia. The patient's speech is slurred and somewhat difficult to understand. LABORATORY DATA: White count was 11.4 on admission, now 6.2; hemoglobin 16.1; and platelets 183. Electrolytes are normal. Creatinine was 2.1 on admission, now 1.7, BUN 27. Liver functions are within normal range and the urine showed large amount of blood and nitrites consistent with infection and a culture verified it with Providencia species resistant to aminoglycosides and cephalosporins. Blood cultures were negative. Renal ultrasound revealed absence of any hydronephrosis, stones, obstruction, or masses. It is reading postvoid residual, which makes me suspect as if the patient has a Huddleston catheter in place. IMPRESSION: 1. Urinary tract infection by culture and may be by clinical criteria since he was confused on admission and complained of suprapubic pain. This has improved dramatically simply with a Huddleston catheter irrigation, which initially showed cloudy urine and now is completely clear. He is also getting parenteral antibiotics, but I have discussed with Infectious Disease and recommended we limit the use of Zosyn that he is currently getting to avoid resistance and complications from antibiotic usage. The patient can be discharged with the Huddleston that should be changed every 3 weeks at least and irrigated daily with 250-300 mL of normal saline to prevent infections. 2. Cardiac problems of atrial fibrillation and congestive heart failure, currently stable. 3. History of stroke with hemiplegia, on anticoagulant. 4. Renal insufficiency, improved. 5. Neurogenic bladder with chronic Huddleston requirement. Continue as per earlier recommendation. 6. Impending decubiti, currently dermatitis and needs close attention and skin care. JOB# [id number]
--- NOTE | 2018-09-14 03:28 | Consultation ---
DATE OF CONSULTATION: 09/12/2018 PRIMARY PHYSICIAN: Dr. Harry. HISTORY OF PRESENT ILLNESS: This is a 48-year-old male who was brought to the Emergency Room with complaint of dysfunction suprapubic catheter. The patient was evaluated in ER and admitted to the hospital. Infectious consultation was called for further treatment. UA positive for UTI. The patient was started antibiotics, Zosyn. PAST MEDICAL HISTORY: Benign prostatic hypertrophy, hypertension, gastroesophageal reflux, hyperlipidemia, CVA, neurogenic bladder cystostomy, suprapubic. FAMILY HISTORY: Negative. SOCIAL HISTORY: Nonsmoker. REVIEW OF SYSTEMS: A 14-point review of system negative except above. PHYSICAL EXAMINATION: GENERAL: Well-nourished male. VITAL SIGNS: Temperature 98.5, pulse 101, respirations 18, blood pressure 115/98. HEENT: Mild pallor, no icterus or plaque. NECK: Supple. LUNGS: Breath sounds bilateral. CARDIOVASCULAR: S1. ABDOMEN: Suprapubic catheter present. Pulses for all the limbs, left-sided weakness present, which is old. LABORATORY DATA: UA positive for UTI. Cultures are pending. DIAGNOSES: Urinary tract infection, dysfunction suprapubic catheter. The patient was started on Zosyn. Wait for culture results, modify antibiotic accordingly. Cerebrovascular accident, left-sided weakness, stable at this time. History of ESBL urine. We will wait for the culture results and gastroesophageal reflux. We will continue with proton pump inhibitor. Thank you Dr. Harry. JOB# [id number]
--- NOTE | 2018-09-19 17:06 | Cardiology ---
09/12/2018 PATIENT OF: Dr. Harry. M-MODE ECHOCARDIOGRAM: Mitral valve, anterior leaflet of mitral valve shows normal excursion, EF velocity. Posterior leaflet of mitral valve shows normal excursion. Left ventricle posterior wall shows increased thickness, normal excursion. Interventricular septum shows increased thickness, normal excursion, hypertrophy of the left ventricle, ejection fraction 60%. Left atrium normal. Aortic root shows normal dimension, normal excursion of aortic leaflets. CONCLUSION: Hypertrophy of the left ventricle, ejection fraction 60%. 2D ECHO: Long axis view showed normal sized left ventricle with hypertrophy of the left ventricle. Left atrium normal. Aortic root shows normal dimension, normal excursion of aortic leaflets. Short axis view of mitral valve normal. Short axis view of aortic valve normal. Apical four chamber view showed normal sized left ventricle with hypertrophy of the left ventricle. Left atrium normal. Right ventricular cavity, right atrium normal, no pericardial effusion. CONCLUSION: Hypertrophy of the left ventricle, ejection fraction 60%. Doppler study shows trace mitral regurgitation, trace tricuspid regurgitation, right ventricular systolic pressure 31 mmHg. JOB# [id number]
--- NOTE | 2018-09-19 17:40 | Discharge Summary ---
DATE OF DISCHARGE: 09/13/2018 This patient came in, has a suprapubic catheter. Suprapubic catheter developed severe ____ and urinary infection for which he was treated and patient improved. The patient also had a Urology consult. The patient was in stable condition on 09/13/2018, was discharged back to [facility] where I will be following the patient. CONDITION AT THE TIME OF DISCHARGE: Stable. DIAGNOSES: Clogged suprapubic catheter and urinary tract infection being treated. History of subarachnoid hemorrhage, history of atrial fibrillation. JOB# [id number]
== END 2018-09-13 14:50 | DRG 466 ==
LOC: ER 10:44 → TELE 15:09
PROVIDERS: ADMIT Internal Medicine; ATTEND Internal Medicine
DX: T83.021A Displacement of indwelling urethral catheter, initial encounter (principal); N17.0 Acute kidney failure with tubular necrosis; A41.9 Sepsis, unspecified organism; G93.41 Metabolic encephalopathy; L89.151 Pressure ulcer of sacral region, stage 1; L89.319 Pressure ulcer of right buttock, unspecified stage; L89.329 Pressure ulcer of left buttock, unspecified stage; I13.0 Hypertensive heart and chronic kidney disease with heart failure and stage 1 through stage 4 chronic kidney disease, or unspecified chronic kidney disease; I50.9 Heart failure, unspecified; N12 Tubulo-interstitial nephritis, not specified as acute or chronic; N18.3 Chronic kidney disease, stage 3 (moderate); I48.2 Chronic atrial fibrillation; I69.354 Hemiplegia and hemiparesis following cerebral infarction affecting left non-dominant side; N30.90 Cystitis, unspecified without hematuria; E78.5 Hyperlipidemia, unspecified; K21.9 Gastro-esophageal reflux disease without esophagitis; B96.89 Other specified bacterial agents as the cause of diseases classified elsewhere; R13.10 Dysphagia, unspecified; Y83.8 Other surgical procedures as the cause of abnormal reaction of the patient, or of later complication, without mention of misadventure at the time of the procedure; Y92.89 Other specified places as the place of occurrence of the external cause; I25.10 Atherosclerotic heart disease of native coronary artery without angina pectoris; N40.1 Benign prostatic hyperplasia with lower urinary tract symptoms; R33.8 Other retention of urine; B96.20 Unspecified Escherichia coli [E. coli] as the cause of diseases classified elsewhere; N31.9 Neuromuscular dysfunction of bladder, unspecified; K27.9 Peptic ulcer, site unspecified, unspecified as acute or chronic, without hemorrhage or perforation; L30.8 Other specified dermatitis; D63.1 Anemia in chronic kidney disease; Z16.12 Extended spectrum beta lactamase (ESBL) resistance; Z79.899 Other long term (current) drug therapy; Z16.24 Resistance to multiple antibiotics
CPT/HCPCS: 36415-UA; 76770-TC; 80048-TC; 80053-TC; 80061-TC; 81001-TC; 81015-TC; 82043-90; 82570-TC; 83735-TC; 83880-TC; 84100-TC; 84300-TC; 84443-TC; 85007-TC; 85025-TC; 87086-90; 93005; A4217; J0360; J0744; J1956; J2543; J7030; X7704; Z7610

== ENCOUNTER 2018-10-03 21:24 | Inpatient (IN) | payer MEDICAID ==
--- NOTE | 2018-10-03 22:06 | ED Physician Chart ---
ED Chief Complaint/HPI - Patient Information Date Seen:: 10/03/18 Time Seen:: 22:03 Chief Complaint:: generalized pain History of Present Illness:: 48 yr old hx cerebral infarct ht failure anemia afib cva tia chronic resp failure Allergies:: Allergies Allergy/AdvReac Type Severity Reaction Status Date / Time No Known Allergies Allergy Verified 10/03/18 21:29 Vitals:: Vital Signs - 8 hr 10/03/18 21:30 Temp 97.7 F HR 79 RR 20 BP 153/101 O2 Sat % 96 ED Review of Systems - Review of Systems General/Constitutional: No fever, No chills, No weight loss, No weakness, No diaphoresis, No edema, No loss of appetite Skin: Skin lesions Head: No headache, No light-headedness Eyes: No loss of vision, No pain, No diplopia ENT: No earache, No nasal drainage, No sore throat, No tinnitus Neck: No neck pain, No swelling, No thyromegaly, No stiffness, No mass noted Cardio Vascular: No chest pain, No palpitations, No PND, No orthopnea, No edema Pulmonary: No SOB, No cough, No sputum, No wheezing GI: No nausea, No vomiting, No diarrhea, No pain, No melena, No hematochezia, No constipation, No hematemesis G/U: No dysuria, No frequency, No hematuria Musculoskeletal: No bone or joint pain, No back pain, No muscle pain Endocrine: No polyuria, No polydipsia Psychiatric: No prior psych history, No depression, No anxiety, No suicidal ideation Hematopoietic: No bruising, No lymphadenopathy Allergic/Immuno: No urticaria, No angioedema Neurological: No syncope, No focal symptoms, No weakness, No paresthesia, No headache, No seizure, No dizziness, No confusion, No vertigo ED Past Medical History - Past Medical History Past Medical History: Other (cva ht failure gerd SAH BPH CKD AFIB ANEMIA HT FAILURE HYPERCHOLESTEREMIA) Family Medical History - Family Member Mother History Unknown: Yes ED Physical Exam - Physical Examination Head: Atraumatic Neck: Nontender Cardio Vascular: No murmur, gallop, rubs (ABD DISTENDED ANASARCA) Neuro/Psych: Alert/oriented (ENLARGED ABD SWOLLEN EXTREMITIES HEMIPLEGIA LT SIDE ) ED Assessment - Assessment General Assessment: CVA HEMIPLEGIA CEREBRAL INFARCT HT FAILURE CHRONIC RESP FAILURE ANASARCA [facility] ED Septic Shock - . Is Septic Shock (SBP<90, OR Lactate>4 mmol\L) present?: No - <6hrs of presentation: Vital Signs: Vital Signs - 8 hr 10/03/18 21:30 Temp 97.7 F HR 79 RR 20 BP 153/101 O2 Sat % 96 ED Reassessment (Disposition) - Reassessment Reassessment Condition:: Unchanged - Diagnosis Diagnosis:: PREVIOUS - Patient Disposition Discharge/Transfer:: Acute Care w/in this hosp Condition at Disposition:: Unchanged
[2018-10-03 22:35] LABS: % BASOPHILS 0.2 % (0.0-2.0); % EOSINOPHILS 2.8 % (0.0-5.0); % LYMPHOCYTES 25.4 % (20.0-50.0); % MONOCYTES 6.2 % (2.0-10.0); % NEUTROPHILS 65.4 % (40.0-80.0); EOSINOPHILE ABSOLUTE 0.2 Th/cmm (0.1-0.4); HEMOGLOBIN 17.4 gm/dL (12-16); LYMPHOCYTE ABSOLUTE 2.1 Th/cmm (1.5-3.0); MEAN CELL VOLUME 84.3 fl (80-99); MEAN CORPUSCULAR HEMOGLOBIN 27.7 pg (26.0-30.0); MEAN CORPUSCULAR HGB CONC 32.8 pg (28.0-36.0); MEAN PLATELET VOLUME 9.3 fl; MONOCYTE ABSOLUTE 0.5 Th/cmm (0.3-1.0); NEUTROPHILE ABSOLUTE 5.3 Th/cmm (1.8-8.0); PLATELET COUNT 189 Th/cmm (150-400); RED BLOOD COUNT 6.28 Mil/cmm (4.30-5.70); RED CELL DISTRIBUTION WIDTH 15.4 % (11.5-20.0); WHITE BLOOD COUNT 8.1 Th/cmm (4.8-10.8)
[2018-10-03 23:02] LABS: ALB/GLOB RATIO 1.1 (1.0-1.8); ALKALINE PHOSPHATASE 94 U/L (34-104); ANION GAP 10.8 (7.0-16.0); BILIRUBIN,TOTAL 1.2 mg/dL (0.3-1.0); BUN - UREA NITROGEN 26 mg/dL (7-25); CALCIUM SERUM 11.2 mg/dL (8.6-10.3); CARBON DIOXIDE 25.6 mEq/L (21.0-31.0); CHLORIDE 108 mEq/L (98-107); CREATININE - SERUM 1.5 mg/dL (0.7-1.3); GFR AFRICAN-AMERICAN > 60.0 ml/min (>90); GFR NON AFRICAN-AMERICAN 52.7 ml/min; GLUCOSE 97 mg/dL (70-105); POTASSIUM SERUM 4.4 mEq/L (3.5-5.1); SGOT 18 U/L (13-39); SGPT/ALT 26 U/L (7-52); SODIUM SERUM 140 mEq/L (136-145); TOTAL PROTEIN,SERUM 7.6 gm/dL (6.0-8.3)
[2018-10-04 02:54] VITALS: BP 148/98
[2018-10-04] MEDS: D5-0.9%NS 1,000 ML IV SCH ×2 (03:06→18:23)
[2018-10-04 06:29] LABS: % BASOPHILS 0.6 % (0.0-2.0); % EOSINOPHILS 2.5 % (0.0-5.0); % LYMPHOCYTES 29.2 % (20.0-50.0); % MONOCYTES 8.6 % (2.0-10.0); % NEUTROPHILS 59.1 % (40.0-80.0); EOSINOPHILE ABSOLUTE 0.2 Th/cmm (0.1-0.4); HEMATOCRIT 52.4 % (41.0-60); HEMOGLOBIN 17.1 gm/dL (12-16); LYMPHOCYTE ABSOLUTE 2.2 Th/cmm (1.5-3.0); MEAN CELL VOLUME 85.4 fl (80-99); MEAN CORPUSCULAR HEMOGLOBIN 27.9 pg (26.0-30.0); MEAN CORPUSCULAR HGB CONC 32.7 pg (28.0-36.0); MEAN PLATELET VOLUME 9.2 fl; MONOCYTE ABSOLUTE 0.6 Th/cmm (0.3-1.0); NEUTROPHILE ABSOLUTE 4.5 Th/cmm (1.8-8.0); PLATELET COUNT 163 Th/cmm (150-400); RED BLOOD COUNT 6.14 Mil/cmm (4.30-5.70); RED CELL DISTRIBUTION WIDTH 15.5 % (11.5-20.0); WHITE BLOOD COUNT 7.5 Th/cmm (4.8-10.8)
[2018-10-04 06:47] LABS: ALB/GLOB RATIO 1.2 (1.0-1.8); ALBUMIN 3.9 gm/dL (4.2-5.5); ALKALINE PHOSPHATASE 93 U/L (34-104); ANION GAP 11.2 (7.0-16.0); BUN - UREA NITROGEN 26 mg/dL (7-25); CALCIUM SERUM 10.9 mg/dL (8.6-10.3); CHLORIDE 110 mEq/L (98-107); CREATININE - SERUM 1.4 mg/dL (0.7-1.3); GFR AFRICAN-AMERICAN > 60.0 ml/min (>90); GLUCOSE 94 mg/dL (70-105); POTASSIUM SERUM 4.2 mEq/L (3.5-5.1); SGOT 15 U/L (13-39); SGPT/ALT 24 U/L (7-52); SODIUM SERUM 141 mEq/L (136-145); TOTAL PROTEIN,SERUM 7.3 gm/dL (6.0-8.3)
[2018-10-04] MEDS ORDERED: Menthol/Zinc Oxide Oint 113gm Tube TP PRN (13:15)
[2018-10-04] MEDS ORDERED: Fleet Enema 135 mL RC PRN (15:09)
[2018-10-04] MEDS ORDERED: Magnesium Hydroxide (MOM) 30 mL UDC PO PRN (15:09)
[2018-10-04] MEDS ORDERED: Acetaminophen 500 MG TAB PO PRN (15:09)
[2018-10-04] MEDS ORDERED: Hydrocodone/APAP 5mg/325mg Tab PO PRN (15:09)
[2018-10-04] MEDS ORDERED: Non-Formulary Item 1 EA (Apixaban [Eliquis] 2.5 MG) PO SCH (17:00)
[2018-10-04] MEDS ORDERED: Atorvastatin Calcium 10 MG TAB PO SCH (21:00)
[2018-10-04 22:18] LABS: URINE SOURCE CATH
[2018-10-04 22:21] LABS: URINE BILIRUBIN NEGATIVE (NEGATIVE); URINE BLOOD MODERATE (NEGATIVE); URINE GLUCOSE (UA) NEGATIVE (NEGATIVE); URINE KETONE NEGATIVE (NEGATIVE); URINE LEUKOCYTE ESTERASE MODERATE (NEGATIVE); URINE MICROSCOPIC INDICATED? YES; URINE NITRATE NEGATIVE (NEGATIVE); URINE PH 5.5 (4.6 - 8.0); URINE PROTEIN 100 mg/dL (NEGATIVE); URINE UROBILINOGEN 0.2 E.U./dL (0.2 - 1.0)
[2018-10-04 22:28] LABS: URINE CLARITY HAZY (CLEAR); URINE COLOR YELLOW
[2018-10-04 22:33] LABS: URINE BACTERIA MODERATE /hpf (NONE SEEN); URINE EPITHELIAL CELLS FEW /lpf (FEW)
--- NOTE | 2018-10-05 02:00 | History & Physical ---
ADMIT DATE: 10/04/2018 HISTORY AND PHYSICAL AND INFECTIOUS DISEASE CONSULTATION CHIEF COMPLAINT: Generalized pain and weakness. HISTORY OF PRESENT ILLNESS: The patient is a 48-year-old male with a past medical history of CVA with left-sided weakness, CHF, GERD, SAH, BPH, CKD, AFib, anemia, hypercholesterolemia, brought in from nursing facility for generalized pain. It was associated with ____. On initial evaluation, his vitals were also stable with mild elevation of blood pressure. However, regular lab work suggested WBC count 6200. Urinalysis showed pyuria and bacteria. ER physician called me to admit the patient with a complicated UTI. It was noted that the patient has incontinent of the urine. The patient is to have suprapubic catheter, which is absent at this time. Urology consultation was reviewed from previous admission and Dr. Nagy, Urology consultation had been recommended to change the suprapubic catheter every 3 weeks for neurogenic bladder. The patient was admitted and continued on his home medication. The patient was started on Rocephin. The patient's creatinine was also elevated at 1.4. PAST MEDICAL HISTORY: Includes hypertension, history of CVA with left-sided weakness and hemiparesis. The patient has CVA 3 times already. CHF, dyslipidemia, peptic ulcer disease, GERD, CKD stage 2, chronic anemia, atrial fibrillation, history of subarachnoid hemorrhage. FAMILY HISTORY: Unremarkable. SOCIAL HISTORY: The patient lives at nursing facility. No history of smoking, alcohol or drug use. MEDICATIONS: As per medication reconciliation sheet. ALLERGIES: NKDA. PAST SURGICAL HISTORY: Suprapubic catheter for neurogenic bladder. REVIEW OF SYSTEMS: GENERAL: The patient is a poor historian. The patient has no fever, no chills. The patient denies any diaphoresis. The patient complains of generalized weakness and body pain. HEENT: The patient denies diplopia, photophobia, sore throat or congestion. RESPIRATORY: The patient denies any cough or shortness of breath. CVS: The patient denies any chest pain or palpitation. GASTROINTESTINAL: The patient denies any nausea, vomiting, diarrhea or constipation. GENITOURINARY: The patient is incontinent of the urine. No hematuria. The patient has history of neurogenic bladder. He is to have a suprapubic catheter, which is excellent and no further information available. CENTRAL NERVOUS SYSTEM: No headache, no dizziness. The patient has old left-sided weakness. PHYSICAL EXAMINATION: VITAL SIGNS: Shows temperature is 99.1 degrees Fahrenheit, pulse 70, respiration is 20, blood pressure 136/83. GENERAL: The patient is comfortable, lying in the bed, not in acute distress. HEENT: Head is normocephalic, atraumatic. Oral cavity moist, pink tongue. Eyes: Pallor is present, no icterus. PERRLA, EOMI. NECK: Supple, no JVD, no carotid bruit. Trachea in midline. CHEST: Bilateral breath sounds. No crackles or wheezing. HEART: S1, S2 within normal limits. Regular rhythm. No murmur, no gallop. ABDOMEN: Soft, nontender, nondistended. Bowel sounds present. EXTREMITIES: No cyanosis, no clubbing, no edema. NEUROLOGIC: Alert, awake, left-sided hemiplegia. LABORATORY DATA: Current lab shows WBC count is 7500, hemoglobin 17.1, hematocrit 52.4, platelets are 162,000, and neutrophil 59.1%. Sodium is 141, potassium 4.2, chloride 110, bicarbonate is 24, BUN is 26, creatinine 1.4, glucose is 94. Urinalysis showed moderate leukoesterase, wbc 10-25, moderate bacteria. Blood cultures are negative so far. Urine culture is pending. IMPRESSION: 1. Urinary tract infection. 2. Hypertension. 3. Atrial fibrillation. 4. Benign prostatic hypertrophy. 5. Gastroesophageal reflux disease. 6. Hyperlipidemia. 7. Cerebrovascular accident with left-sided hemiparesis. 8. History of suprapubic catheter. 9. The patient has chronic kidney disease, stage 2-3. RECOMMENDATIONS: We will call Urology consultation on clarification of use of suprapubic catheter in his case because of neurogenic bladder. Meanwhile wait for the urine culture report. Started on Rocephin. Will apply SCDs. Consultation was called. Urology consultation, Dr. Nagy and Dr. Chilel for Nephrology consultation for CKD. JOB# [id number]
--- NOTE | 2018-10-05 05:10 | Consultation ---
DATE OF CONSULTATION: 10/04/2018 REASON FOR CONSULTATION: Worsening kidney function, electrolyte imbalance, and fluid management. HISTORY OF PRESENT ILLNESS: This is a 48-year-old male with past medical history of chronic kidney disease, who came in because of generalized body pain. A few hours prior to admission, the patient suddenly developed generalized body pain. He denied any trauma to the area. His BUN/creatinine were 26/1.5; however, his calcium level was 11.2. He had no nausea, vomiting, diarrhea, fever/chills, shortness of breath, chest pain, dysuria, hematuria. PAST MEDICAL HISTORY: 1. Chronic kidney disease. 2. Morbid obesity. 3. Chronic atrial fibrillation. 4. BPH. 5. Status post CVA. 6. Recurrent urinary tract infection. 7. History of urinary retention. 8. Dyslipidemia. 9. Anemia of chronic disease. 10. History of subarachnoid hemorrhage. CURRENT MEDICATIONS: He is currently on acetaminophen, amlodipine, Eliquis, atorvastatin, calcium, bisacodyl, clonidine, hydralazine, hydrocodone/APAP, lactobacillus, magnesium hydroxide, zinc oxide, metoprolol, sennoside A and B, and tamsulosin. ALLERGIES: No known drug allergies. SOCIAL AND FAMILY HISTORY: I was not able to obtain from the patient because of problems with comprehension on the patient's side. REVIEW OF SYSTEMS: Again, I was not able to obtain any information from the patient. However, he just kept on complaining about generalized body aches. PHYSICAL EXAMINATION: GENERAL: The patient is morbidly obese, in somewhat moderate distress, no shortness of breath. VITAL SIGNS: His blood pressure is 137/78, pulse is 82, and temperature 98 degrees. SKIN: Poor turgor, warm, no rash, no jaundice appreciated. He has a 5 x 6 inch nevus on his right upper arm. HEENT: Head normocephalic, atraumatic. Eyes: Extraocular muscles intact. Pupils equal, round, reactive to light and accommodates. Anicteric sclerae. [place] N[place]honi conjunctivae. Nose: Midline nasal septum. Mouth: Dry mucosa, adequate dentition. NECK: Supple, no adenopathy, no thyromegaly, no bruits. Trachea palpated in the midline. CHEST AND CARDIOVASCULAR: S1, S2. No rub, murmur, nor gallop appreciated. Point of maximal impulse in fifth intercostal space, left midclavicular line. No abdominal or femoral bruits appreciated. LUNGS: Equal expansion. No use of accessory muscles. No supraclavicular retractions. Decreased breath sounds. No rales or rhonchi appreciated. ABDOMEN: Obese, soft, positive for bowel sounds. Firm to palpate. No bruits either diastolic or systolic. RECTAL: The patient refused. GENITOURINARY: Normal appearing male genitalia with condom cath. MUSCULOSKELETAL: No evidence of suprapubic catheter and nonpalpable bladder. EXTREMITIES: No evidence of any edema, cyanosis, nor clubbing with palpable femoral, but unable to fully appreciate popliteal and dorsalis pedis pulses. NEUROLOGIC: The patient is awake, unable to follow my neuro commands, so I was not able to pursue further by neuro exam. LABORATORY DATA AND STUDIES: Did reveal white count 7.5, hemoglobin 17.1, hematocrit 52.4. Sodium 141, potassium 4.2, chloride 110, CO2 24, BUN 26, creatinine 1.4, glucose is 94, calcium 10.9, albumin is 3.1. IMPRESSION: 1. Chronic kidney disease, MDRD GFR of 57 mL per minute, stage III. This is likely the patient's baseline creatinine at this point. His chronic kidney disease is possibly due to chronic obstructive uropathy with history of benign prostatic hypertrophy as well as history of having a suprapubic catheter or tube in the past. 2. Hypercalcemia. This is possibly due to dehydration, but need to consider hypovitaminosis D, primary hyperparathyroidism, malignancy, immobility, familial hypercalcemic hypocalciuria, as well as medications. 3. Generalized body aches, etiology unknown at the present time. 4. Morbid obesity. 5. Chronic atrial fibrillation with controlled rate. 6. Benign prostatic hypertrophy. 7. Status post cerebrovascular accident. 8. History of recurrent urinary tract infection. 9. History of urinary retention. 10. Dyslipidemia. 11. Anemia of chronic disease. 12. History of subarachnoid hemorrhage. PLAN: 1. Continue with IV hydration. 2. Discontinue atorvastatin, calcium for the meantime. 3. Follow up electrolytes, vitamin D, intact PTH as well as ionized calcium. 4. Urinalysis with culture and sensitivity. 5. Follow up renal ultrasound. 6. Urine sodium, eosinophils, and creatinine. Thank you, Dr. Streeter, for this consult and follow the patient closely with you. [facility]# [id number]
[2018-10-05 05:49] LABS: ANION GAP 12.6 (7.0-16.0); BUN - UREA NITROGEN 25 mg/dL (7-25); CALCIUM SERUM 10.7 mg/dL (8.6-10.3); CARBON DIOXIDE 22.9 mEq/L (21.0-31.0); CHLORIDE 109 mEq/L (98-107); CREATININE - SERUM 1.4 mg/dL (0.7-1.3); GFR AFRICAN-AMERICAN > 60.0 ml/min (>90); GLUCOSE 115 mg/dL (70-105); PHOSPHOROUS 2.1 mg/dL (2.5-5.0); POTASSIUM SERUM 4.5 mEq/L (3.5-5.1); SODIUM SERUM 140 mEq/L (136-145)
[2018-10-05 06:51] LABS: % BASOPHILS 0.8 % (0.0-2.0); % EOSINOPHILS 1.6 % (0.0-5.0); % LYMPHOCYTES 16.4 % (20.0-50.0); % MONOCYTES 8.7 % (2.0-10.0); % NEUTROPHILS 72.5 % (40.0-80.0); BASOPHILE ABSOLUTE 0.1 Th/cumm (0-0.2); EOSINOPHILE ABSOLUTE 0.1 Th/cmm (0.1-0.4); HEMATOCRIT 51.1 % (41.0-60); HEMOGLOBIN 17.1 gm/dL (12-16); LYMPHOCYTE ABSOLUTE 1.5 Th/cmm (1.5-3.0); MEAN CELL VOLUME 84.1 fl (80-99); MEAN CORPUSCULAR HEMOGLOBIN 28.1 pg (26.0-30.0); MEAN CORPUSCULAR HGB CONC 33.4 pg (28.0-36.0); MEAN PLATELET VOLUME 10.1 fl; MONOCYTE ABSOLUTE 0.8 Th/cmm (0.3-1.0); NEUTROPHILE ABSOLUTE 6.4 Th/cmm (1.8-8.0); PLATELET COUNT 147 Th/cmm (150-400); RED BLOOD COUNT 6.08 Mil/cmm (4.30-5.70); RED CELL DISTRIBUTION WIDTH 15.4 % (11.5-20.0); WHITE BLOOD COUNT 8.9 Th/cmm (4.8-10.8)
[2018-10-05 07:18] LABS: URINE SOURCE CLEAN C
--- NOTE | 2018-10-05 07:32 | Diagnostic Imaging Report ---
Portable chest x-ray HISTORY: Shortness of breath The heart is enlarged. No focal pulmonary processes. No hilar or mediastinal abnormalities. IMPRESSION: 1. No acute pulmonary processes 2. Cardiomegaly
[2018-10-05 07:34] LABS: URINE BILIRUBIN NEGATIVE (NEGATIVE); URINE BLOOD TRACE (NEGATIVE); URINE GLUCOSE (UA) NEGATIVE (NEGATIVE); URINE KETONE NEGATIVE (NEGATIVE); URINE LEUKOCYTE ESTERASE MODERATE (NEGATIVE); URINE MICROSCOPIC INDICATED? YES; URINE NITRATE NEGATIVE (NEGATIVE); URINE PROTEIN 100 mg/dL (NEGATIVE); URINE UROBILINOGEN 0.2 E.U./dL (0.2 - 1.0)
[2018-10-05 07:50] LABS: URINE CLARITY CLOUDY (CLEAR); URINE COLOR COLORLESS
[2018-10-05 07:59] LABS: URINE BACTERIA 3+ /hpf (NONE SEEN); URINE EPITHELIAL CELLS FEW /lpf (FEW); URINE WBC 50-100 /hpf (0-5)
[2018-10-05] MEDS: Lactobacillus Rhamnosus GG 15 Billion CFU CAP.SPRINK PO SCH (08:23)
--- NOTE | 2018-10-05 08:53 | Diagnostic Imaging Report ---
Renal ultrasound HISTORY: Abnormal renal function test Exam is very limited due to patient's size, body habitus, and lack of patient cooperation. Suboccipital detail of the right kidney and suboptimal delineation of the renal margins. This appears to exhibit an overall normal size. No obvious focal lesions or hydronephrosis. The left kidney could not be well visualized at this time. IMPRESSION: 1. Very limited exam due to patient size, body habitus, and lack of patient cooperation. Poor detail of the right kidney with no obvious focal lesions or hydronephrosis. The left kidney cannot be clearly visualized at this time. If needed, a CT scan may provide additional anatomic evaluation.
[2018-10-05] MEDS ORDERED: Non-Formulary Item 1 EA (Cran/Vitc/Mannose/Fos/Bromeln [Uti-Stat Liquid] 30 ML) PO SCH (09:00)
[2018-10-05 09:51] LABS: EOSINOPHIL SMEAR SOURCE URINE; EOSINOPHILS SMEAR COUNT NONE SEEN (NONE SEEN)
--- NOTE | 2018-10-05 14:37 | General Progress Note ---
Subjective - Review of Systems Service Date: 10/05/18 Subjective: sleeping, comfortable Objective - Results Result Diagrams: 10/05/18 05:20 10/05/18 05:20 Recent Labs: Laboratory Last Values WBC 8.9 Th/cmm (4.8-10.8) 10/05/18 05:20 RBC 6.08 Mil/cmm (4.30-5.70) H 10/05/18 05:20 Hgb 17.1 gm/dL (12-16) 10/05/18 05:20 Hct 51.1 % (41.0-60) 10/05/18 05:20 MCV 84.1 fl (80-99) 10/05/18 05:20 MCH 28.1 pg (26.0-30.0) 10/05/18 05:20 MCHC Differential 33.4 pg (28.0-36.0) 10/05/18 05:20 RDW 15.4 % (11.5-20.0) 10/05/18 05:20 Plt Count 147 Th/cmm (150-400) L 10/05/18 05:20 MPV 10.1 fl 10/05/18 05:20 Neutrophils % 72.5 % (40.0-80.0) 10/05/18 05:20 Lymphocytes % 16.4 % (20.0-50.0) L 10/05/18 05:20 Monocytes % 8.7 % (2.0-10.0) 10/05/18 05:20 Eosinophils % 1.6 % (0.0-5.0) 10/05/18 05:20 Basophils % 0.8 % (0.0-2.0) 10/05/18 05:20 Eos Smear Source URINE 10/05/18 04:05 Eos Smear Total Cells NONE SEEN (NONE SEEN) 10/05/18 04:05 Sodium 140 mEq/L (136-145) 10/05/18 05:20 Potassium 4.5 mEq/L (3.5-5.1) 10/05/18 05:20 Chloride 109 mEq/L (98-107) H 10/05/18 05:20 Carbon Dioxide 22.9 mEq/L (21.0-31.0) 10/05/18 05:20 Anion Gap 12.6 (7.0-16.0) 10/05/18 05:20 BUN 25 mg/dL (7-25) 10/05/18 05:20 Creatinine 1.4 mg/dL (0.7-1.3) H 10/05/18 05:20 Est GFR ( Amer) > 60.0 ml/min (>90) 10/05/18 05:20 Est GFR (Non-Af Amer) 57.0 ml/min 10/05/18 05:20 BUN/Creatinine Ratio 17.9 10/05/18 05:20 Glucose 115 mg/dL (70-105) H 10/05/18 05:20 Calcium 10.7 mg/dL (8.6-10.3) H 10/05/18 05:20 Phosphorus 2.1 mg/dL (2.5-5.0) L 10/05/18 05:20 Magnesium 2.0 mg/dL (1.9-2.7) 10/05/18 05:20 Total Bilirubin 1.0 mg/dL (0.3-1.0) 10/04/18 06:10 AST 15 U/L (13-39) 10/04/18 06:10 ALT 24 U/L (7-52) 10/04/18 06:10 Alkaline Phosphatase 93 U/L (34-104) 10/04/18 06:10 Troponin I 0.03 ng/mL (0.01-0.05) 10/03/18 22:20 Total Protein 7.3 gm/dL (6.0-8.3) 10/04/18 06:10 Albumin 3.9 gm/dL (4.2-5.5) L 10/04/18 06:10 Globulin 3.4 gm/dL 10/04/18 06:10 Albumin/Globulin Ratio 1.2 (1.0-1.8) 10/04/18 06:10 Urine Source CLEAN C 10/05/18 04:05 Urine Color COLORLESS 10/05/18 04:05 Urine Clarity CLOUDY (CLEAR) 10/05/18 04:05 Urine pH 6.0 (4.6 - 8.0) 10/05/18 04:05 Ur Specific [place] 1.020 (1.005-1.030) 10/05/18 04:05 Urine Protein 100 mg/dL (NEGATIVE) H 10/05/18 04:05 Urine Glucose (UA) NEGATIVE mg/dL (NEGATIVE) 10/05/18 04:05 Urine Ketones NEGATIVE mg/dL (NEGATIVE) 10/05/18 04:05 Urine Blood TRACE (NEGATIVE) 10/05/18 04:05 Urine Nitrate NEGATIVE (NEGATIVE) 10/05/18 04:05 Urine Bilirubin NEGATIVE (NEGATIVE) 10/05/18 04:05 Urine Urobilinogen 0.2 E.U./dL (0.2 - 1.0) 10/05/18 04:05 Ur Leukocyte Esterase MODERATE (NEGATIVE) H 10/05/18 04:05 Urine RBC 2-5 /hpf (0-5) H 10/05/18 04:05 Urine WBC 50-100 /hpf (0-5) H 10/05/18 04:05 Ur Epithelial Cells FEW /lpf (FEW) 10/05/18 04:05 Urine Bacteria 3+ /hpf (NONE SEEN) H 10/05/18 04:05 Ur Oval Fat Bodies [employer] 10/04/18 21:50 Ur Random Sodium 126 mmol/L 10/05/18 04:05 Urine Creatinine 60.0 mg/dl (39.0-259.0) 10/05/18 04:05 - Physical Exam Vitals and I&O: Vital Signs Temp 97.3 F 10/05/18 11:52 Pulse 76 10/05/18 11:52 Resp 18 10/05/18 11:52 BP 124/82 10/05/18 11:52 Pulse Ox 94 10/05/18 11:52 Intake & Output 10/04/18 10/05/18 10/05/18 18:59 06:59 18:59 Intake Total 1367 200 Balance 1367 200 Weight (lbs) 71.577 kg 124.738 kg 124.738 kg Intake: Intake, IV Amount 917 D5-0.9%Ns 1,000 ml @ 60 917 mls/hr IV .[id number] [facility] Rx #:[id number] Oral 450 200 Other: # Voids 2 3 # Bowel Movements 1 Weight Source Bedscale Bedscale Bedscale Active Medications: Current Medications Acetaminophen (Tylenol Extra Strength) 1,000 mg PO Q4HR PRN PRN Reason: Pain (Moderate) Stop: 12/03/18 15:08 Acetaminophen (Tylenol) 650 mg PO Q4H PRN PRN Reason: Mild Pain or Fever >101 Acetaminophen/Hydrocodone Bitart ([place] 5mg/325mg) 1 tab PO Q6H PRN PRN Reason: Pain (Severe) Stop: 12/03/18 15:08 Amlodipine Besylate (Norvasc) 5 mg PO DAILY [facility] Stop: 12/04/18 08:59 Last Admin: 10/05/18 08:23 Dose: 5 mg Bisacodyl (Dulcolax 10 Mg Supp) 10 mg RC DAILY PRN PRN Reason: Constipation Stop: 12/03/18 15:08 Calamine/Phenol (Calmoseptine) 1 appl TP QID PRN PRN Reason: Skin Irritation Stop: 12/03/18 13:14 Last Admin: 10/04/18 18:24 Dose: 1 appl Hydralazine HCl (Apresoline) 10 mg PO Q4H PRN PRN Reason: SBP ABOVE 150 Stop: 12/03/18 15:08 Hydralazine HCl (Apresoline) 25 mg PO TID [facility] Stop: 12/03/18 20:59 Last Admin: 10/05/18 09:34 Dose: 25 mg Dextrose/Sodium Chloride (D5-0.9%Ns) 1,000 mls @ 60 mls/hr IV .[id number] [facility] Stop: 12/03/18 01:59 Last Admin: 10/04/18 18:23 Dose: 60 mls/hr Ceftriaxone Sodium 1 gm/ (Dextrose) 50 mls @ 100 mls/hr IV Q24H [facility] Stop: 12/04/18 00:59 Last Admin: 10/05/18 01:41 Dose: 100 mls/hr Lactobacillus Rhamnosus (Culturelle 15b) 1 each PO DAILY [facility] Stop: 12/04/18 08:59 Last Admin: 10/05/18 08:23 Dose: 1 each Magnesium Hydroxide (Milk Of Magnesia) 30 ml PO HS PRN PRN Reason: Constipation Stop: 12/03/18 15:08 Metoprolol Tartrate (Lopressor) 50 mg PO TID [facility] Stop: 12/03/18 20:59 Last Admin: 10/05/18 09:34 Dose: 50 mg Miscellaneous (Apixaban [Eliquis]) 2.5 mg PO BID [facility] Stop: 12/03/18 16:59 Senna (Senna) 17.2 mg PO HS [facility] Stop: 12/03/18 20:59 Last Admin: 10/04/18 20:32 Dose: 17.2 mg Sodium Phosphate (Fleet Enema) 135 ml RC Q2D PRN PRN Reason: IF DULCOLAX INEFFECTIVE Stop: 12/03/18 15:08 Tamsulosin HCl (Flomax) 0.4 mg PO HS [facility] Stop: 12/03/18 20:59 Last Admin: 10/04/18 20:33 Dose: 0.4 mg General: No acute distress HEENT: Atraumatic, EOMI Neck: Supple Cardiovascular: Regular rate, Normal S1, Normal S2 Lungs: Clear to auscultation Abdomen: Bowel sounds, Soft Extremities: no Edema Neurological: Sensation intact Skin: no Rash Psych/Mental Status: Mood NL Assessment/Plan - Assessment Assessment: CKD Hypercalcemia Gen Body Aches Morbid Obesity Chronic A. fib w/CR BPH S/P CVA Anemia of CKD - Plan Plan: Lab - Result Diagrams 10/05/18 05:20 10/05/18 05:20 Current Medications Acetaminophen (Tylenol Extra Strength) 1,000 mg PO Q4HR PRN PRN Reason: Pain (Moderate) Stop: 12/03/18 15:08 Acetaminophen (Tylenol) 650 mg PO Q4H PRN PRN Reason: Mild Pain or Fever >101 Acetaminophen/Hydrocodone Bitart ([place] 5mg/325mg) 1 tab PO Q6H PRN PRN Reason: Pain (Severe) Stop: 12/03/18 15:08 Amlodipine Besylate (Norvasc) 5 mg PO DAILY [facility] Stop: 12/04/18 08:59 Last Admin: 10/05/18 08:23 Dose: 5 mg Bisacodyl (Dulcolax 10 Mg Supp) 10 mg RC DAILY PRN PRN Reason: Constipation Stop: 12/03/18 15:08 Calamine/Phenol (Calmoseptine) 1 appl TP QID PRN PRN Reason: Skin Irritation Stop: 12/03/18 13:14 Last Admin: 10/04/18 18:24 Dose: 1 appl Hydralazine HCl (Apresoline) 10 mg PO Q4H PRN PRN Reason: SBP ABOVE 150 Stop: 12/03/18 15:08 Hydralazine HCl (Apresoline) 25 mg PO TID [facility] Stop: 12/03/18 20:59 Last Admin: 10/05/18 09:34 Dose: 25 mg Dextrose/Sodium Chloride (D5-0.9%Ns) 1,000 mls @ 60 mls/hr IV .[id number] [facility] Stop: 12/03/18 01:59 Last Admin: 10/04/18 18:23 Dose: 60 mls/hr Ceftriaxone Sodium 1 gm/ (Dextrose) 50 mls @ 100 mls/hr IV Q24H [facility] Stop: 12/04/18 00:59 Last Admin: 10/05/18 01:41 Dose: 100 mls/hr Lactobacillus Rhamnosus (Culturelle 15b) 1 each PO DAILY [facility] Stop: 12/04/18 08:59 Last Admin: 10/05/18 08:23 Dose: 1 each Magnesium Hydroxide (Milk Of Magnesia) 30 ml PO HS PRN PRN Reason: Constipation Stop: 12/03/18 15:08 Metoprolol Tartrate (Lopressor) 50 mg PO TID [facility] Stop: 12/03/18 20:59 Last Admin: 10/05/18 09:34 Dose: 50 mg Miscellaneous (Apixaban [Eliquis]) 2.5 mg PO BID [facility] Stop: 12/03/18 16:59 Senna (Senna) 17.2 mg PO HS [facility] Stop: 12/03/18 20:59 Last Admin: 10/04/18 20:32 Dose: 17.2 mg Sodium Phosphate (Fleet Enema) 135 ml RC Q2D PRN PRN Reason: IF DULCOLAX INEFFECTIVE Stop: 12/03/18 15:08 Tamsulosin HCl (Flomax) 0.4 mg PO HS [facility] Stop: 12/03/18 20:59 Last Admin: 10/04/18 20:33 Dose: 0.4 mg Lab - Result Diagrams 10/05/18 05:20 10/05/18 05:20 Kidney fnc improving w/ BUN/CR of 25/1.4 replace P04; Ca better at 10.7 Renal US no hydro FE Na 2.1% suggestive of Intrinsic renal factor f/u electyrolytes Nutritional Asmnt/Malnutr-PDOC - Dietary Evaluation Malnutrition Findings (Please click <Entered> for more info): Nutritional Asmnt/Malnutrition Start: 10/04/18 15: 58 Text: Status: Complete Freq: Protocol: Document 10/04/18 15:58 JYOTHISARAH (Rec: 10/04/18 16:12 GWEN [email or web address]) Nutritional Asmnt/Malnutrition Patient General Information Nutritional Screening High Risk Consult Diagnosis generalized weakness Pertinent Medical Hx/Surgical Hx CVA, heart failure, GERD, SAH, BPH, CKD, Afib, Anemia, hypercholesteremia Subjective Information Consult received for dipika 12 , IAD/non-intact skin on buttocks/sacral areas. Pt seen sleeping in bed at time of visit. Per RN, pt consumed about 50% of lunch today. Current Diet Order/ Nutrition Support [facility] soft ground, [place], CCHO Pertinent Medications lipitor, D5-0.9%ns, culturelle , senna Pertinent Labs 10/04 Cl 110, BUN 26, Cr 1.4, Ca 10.9, alb 3.9 10/03 Cl 108, BUN 26, Cr 1.5, Ca 11.2, alb 4.0 Nutritional Hx/Data Height 1.73 m Height (Calculated Centimeters) 172.7 Current Weight (lbs) 71.668 kg Weight (Calculated Kilograms) 71.7 Weight (Calculated Grams) 03185.6 [place] Body Weight 154 Body Mass Index (BMI) 24.0 Weight Status Approriate GI Symptoms GI Symptoms None Last BM not indicated Difficult in: None Skin Integrity/Comment: non-intact skin to left/right bottock, chronic wound to right heel Current %PO Fair (50-74%) Estimated Nutritional Goals BEE in Kcals: Using Current wt Calories/Kcals/Kg 25-30 Kcals Calculated 8601-9152 Protein: Using Current wt Protein g/k.8-1 Protein Calculated 58-72 Fluid: ml 1800-2160ml (1ml/kcal) Nutritional Problem 1. Problem Problem altered nutrition related labs Etiology hx of CKD Signs/Symptoms: BUN 26 Cr. 1.4 Malnutrition Alert Is there a minimum of two criteria No selected? Query Text:Check all the applicable criteria. A minimum of two criteria are recommended for diagnosis of either severe or non-severe malnutrition. Malnutrition Related to Morbid Obesity Malnutrition related to morbid obesity No Intervention/Recommendation Comments 1. Add Levon BID for wound healing. 2. Consider removing CCHO diet restriction d/t glucose WNL and no hx of DM. Monitor renal labs and reassess needs for limiting protein intake. 3. Monitor PO intake, wt, labs and skin integrity. If PO intake continue < 50%, will consider adding nutrition supplements. 4. F/U as high risk in 2-3 days, 10/06-10/07 Expected Outcomes/Goals Expected Outcomes/Goals 1. PO intake to meet at least 75% of nutritional needs. 2. Wt stability, skin to remain intact, labs to approach WNL.
[2018-10-05] MEDS ORDERED: Sodium Phosphate 20 MMOLE in Sodium Chloride 0.9% 250 ML IV ONE (15:00)
[2018-10-05] MEDS: D5-0.9%NS 1,000 ML IV SCH (22:05)
--- NOTE | 2018-10-06 05:59 | Progress Notes ---
DATE: 10/05/2018 SUBJECTIVE: The patient lying in the bed, in no acute distress, no fever, no chills. OBJECTIVE: VITAL SIGNS: Temperature 97.9, pulse 80, respirations 18, blood pressure 127/80. GENERAL: The patient is comfortable lying in the bed, not in acute distress. HEENT: Head is normocephalic, atraumatic. Oral cavity moist. NECK: Supple, no JVD, no carotid bruit. Trachea midline. CHEST: Bilateral breath sounds. No crackles or wheezing. HEART: S1, S2 within normal limits. Regular rhythm. ABDOMEN: Soft, nontender, nondistended. Bowel sounds present. EXTREMITIES: No cyanosis, no clubbing, no edema. NEUROLOGIC: Alert, awake. The patient has left-sided hemiplegia. LABORATORY DATA: WBC count 8900, hemoglobin 17.1, hematocrit is 51.1, platelets are 147,000, neutrophil is 72.5%. Sodium 140, potassium 4.5, chloride 109, bicarbonate is 22.9, BUN is 25, creatinine 1.4, glucose is 115. Urinalysis showed clear urine with negative nitrite and wbc's 2-5 and 3+ bacteria. Blood culture grew one of the two sets growing, gram with cocci in clusters. IMPRESSION: 1. Gram positive staph bacteremia versus contaminant. 2. Urinary tract infection. 3. Neurogenic bladder. 4. Atrial fibrillation. 5. Benign prostatic hypertrophy. 6. Gastroesophageal reflux disease. 7. Hyperlipidemia. 8. Cerebrovascular accident on multiple occasions with left-sided hemiparesis. 9. Chronic kidney disease stage 2. RECOMMENDATION AND PLAN: We will continue Rocephin, start vancomycin. Depending on the blood culture report, we will define further plan. Anticipate discharge planning in 1-2 days to the nursing facility. JOB# [id number]
[2018-10-06 06:18] LABS: ANION GAP 11.5 (7.0-16.0); BUN - UREA NITROGEN 23 mg/dL (7-25); CALCIUM SERUM 10.3 mg/dL (8.6-10.3); CARBON DIOXIDE 23.6 mEq/L (21.0-31.0); CHLORIDE 108 mEq/L (98-107); CREATININE - SERUM 1.3 mg/dL (0.7-1.3); GFR AFRICAN-AMERICAN > 60.0 ml/min (>90); GFR NON AFRICAN-AMERICAN > 60.0 ml/min; GLUCOSE 126 mg/dL (70-105); PHOSPHOROUS 2.4 mg/dL (2.5-5.0); POTASSIUM SERUM 4.1 mEq/L (3.5-5.1); SODIUM SERUM 139 mEq/L (136-145)
[2018-10-06] MEDS ORDERED: Vancomycin HCl 1.5 GM in Sodium Chloride 0.9% 500 ML IV ONE (06:30)
[2018-10-06] MEDS: Lactobacillus Rhamnosus GG 15 Billion CFU CAP.SPRINK PO SCH (08:24)
[2018-10-06] MEDS: D5-0.9%NS 1,000 ML IV SCH (11:12)
[2018-10-06] MEDS ORDERED: Vancomycin HCl 1.5 GM in Sodium Chloride 0.9% 500 ML IV SCH (12:00)
[2018-10-06] MEDS ORDERED: Sodium Phosphate 20 MMOLE in Sodium Chloride 0.9% 250 ML IV ONE (12:25)
--- NOTE | 2018-10-06 12:28 | General Progress Note ---
Subjective - Review of Systems Service Date: 10/06/18 Subjective: min. body discomfort Objective - Results Result Diagrams: 10/05/18 05:20 10/06/18 05:46 Recent Labs: Laboratory Last Values WBC 8.9 Th/cmm (4.8-10.8) 10/05/18 05:20 RBC 6.08 Mil/cmm (4.30-5.70) H 10/05/18 05:20 Hgb 17.1 gm/dL (12-16) 10/05/18 05:20 Hct 51.1 % (41.0-60) 10/05/18 05:20 MCV 84.1 fl (80-99) 10/05/18 05:20 MCH 28.1 pg (26.0-30.0) 10/05/18 05:20 MCHC Differential 33.4 pg (28.0-36.0) 10/05/18 05:20 RDW 15.4 % (11.5-20.0) 10/05/18 05:20 Plt Count 147 Th/cmm (150-400) L 10/05/18 05:20 MPV 10.1 fl 10/05/18 05:20 Neutrophils % 72.5 % (40.0-80.0) 10/05/18 05:20 Lymphocytes % 16.4 % (20.0-50.0) L 10/05/18 05:20 Monocytes % 8.7 % (2.0-10.0) 10/05/18 05:20 Eosinophils % 1.6 % (0.0-5.0) 10/05/18 05:20 Basophils % 0.8 % (0.0-2.0) 10/05/18 05:20 Eos Smear Source URINE 10/05/18 04:05 Eos Smear Total Cells NONE SEEN (NONE SEEN) 10/05/18 04:05 Sodium 139 mEq/L (136-145) 10/06/18 05:46 Potassium 4.1 mEq/L (3.5-5.1) 10/06/18 05:46 Chloride 108 mEq/L (98-107) H 10/06/18 05:46 Carbon Dioxide 23.6 mEq/L (21.0-31.0) 10/06/18 05:46 Anion Gap 11.5 (7.0-16.0) 10/06/18 05:46 BUN 23 mg/dL (7-25) 10/06/18 05:46 Creatinine 1.3 mg/dL (0.7-1.3) 10/06/18 05:46 Est GFR ( Amer) > 60.0 ml/min (>90) 10/06/18 05:46 Est GFR (Non-Af Amer) > 60.0 ml/min 10/06/18 05:46 BUN/Creatinine Ratio 17.7 10/06/18 05:46 Glucose 126 mg/dL (70-105) H 10/06/18 05:46 Calcium 10.3 mg/dL (8.6-10.3) 10/06/18 05:46 Phosphorus 2.4 mg/dL (2.5-5.0) L 10/06/18 05:46 Magnesium 2.0 mg/dL (1.9-2.7) 10/05/18 05:20 Total Bilirubin 1.0 mg/dL (0.3-1.0) 10/04/18 06:10 AST 15 U/L (13-39) 10/04/18 06:10 ALT 24 U/L (7-52) 10/04/18 06:10 Alkaline Phosphatase 93 U/L (34-104) 10/04/18 06:10 Troponin I 0.03 ng/mL (0.01-0.05) 10/03/18 22:20 Total Protein 7.3 gm/dL (6.0-8.3) 10/04/18 06:10 Albumin 3.9 gm/dL (4.2-5.5) L 10/04/18 06:10 Globulin 3.4 gm/dL 10/04/18 06:10 Albumin/Globulin Ratio 1.2 (1.0-1.8) 10/04/18 06:10 Vitamin D 25-Hydroxy 16.2 ng/mL (30.0-100.0) L 10/05/18 06:10 Urine Source CLEAN C 10/05/18 04:05 Urine Color COLORLESS 10/05/18 04:05 Urine Clarity CLOUDY (CLEAR) 10/05/18 04:05 Urine pH 6.0 (4.6 - 8.0) 10/05/18 04:05 Ur Specific [place] 1.020 (1.005-1.030) 10/05/18 04:05 Urine Protein 100 mg/dL (NEGATIVE) H 10/05/18 04:05 Urine Glucose (UA) NEGATIVE mg/dL (NEGATIVE) 10/05/18 04:05 Urine Ketones NEGATIVE mg/dL (NEGATIVE) 10/05/18 04:05 Urine Blood TRACE (NEGATIVE) 10/05/18 04:05 Urine Nitrate NEGATIVE (NEGATIVE) 10/05/18 04:05 Urine Bilirubin NEGATIVE (NEGATIVE) 10/05/18 04:05 Urine Urobilinogen 0.2 E.U./dL (0.2 - 1.0) 10/05/18 04:05 Ur Leukocyte Esterase MODERATE (NEGATIVE) H 10/05/18 04:05 Urine RBC 2-5 /hpf (0-5) H 10/05/18 04:05 Urine WBC 50-100 /hpf (0-5) H 10/05/18 04:05 Ur Epithelial Cells FEW /lpf (FEW) 10/05/18 04:05 Urine Bacteria 3+ /hpf (NONE SEEN) H 10/05/18 04:05 Ur Oval Fat Bodies [place] 10/04/18 21:50 Ur Random Sodium 126 mmol/L 10/05/18 04:05 Urine Creatinine 60.0 mg/dl (39.0-259.0) 10/05/18 04:05 - Physical Exam Vitals and I&O: Vital Signs Temp 98.2 F 10/06/18 10:47 Pulse 64 10/06/18 10:47 Resp 19 10/06/18 10:47 BP 125/87 10/06/18 10:47 Pulse Ox 97 10/06/18 10:47 Intake & Output 10/05/18 10/06/18 10/06/18 18:59 06:59 18:59 Intake Total 1999 956.6667 787 Balance 1999 956.6667 787 Weight (lbs) 126.28 kg 126.099 kg Intake: Intake, IV Amount 0281 970.2163 787 D5-0.9%Ns 1,000 ml @ 60 1000 787 mls/hr IV .[id number] [facility] Rx #:[id number] Sodium Phosphate 20 mmole 256.6667 In Sodium Chloride 0.9% 250 ml @ 42.5 mls/hr IV X1 [facility] Rx#:[id number] Oral 1000 700 Other: # Voids 4 3 # Bowel Movements 1 0 Stool Characteristics Soft Weight Source Bedscale Bedscale Active Medications: Current Medications Acetaminophen (Tylenol Extra Strength) 1,000 mg PO Q4HR PRN PRN Reason: Pain (Moderate) Stop: 12/03/18 15:08 Acetaminophen (Tylenol) 650 mg PO Q4H PRN PRN Reason: Mild Pain or Fever >101 Acetaminophen/Hydrocodone Bitart ([place] 5mg/325mg) 1 tab PO Q6H PRN PRN Reason: Pain (Severe) Stop: 12/03/18 15:08 Amlodipine Besylate (Norvasc) 5 mg PO DAILY [facility] Stop: 12/04/18 08:59 Last Admin: 10/06/18 08:23 Dose: 5 mg Bisacodyl (Dulcolax 10 Mg Supp) 10 mg RC DAILY PRN PRN Reason: Constipation Stop: 12/03/18 15:08 Calamine/Phenol (Calmoseptine) 1 appl TP QID PRN PRN Reason: Skin Irritation Stop: 12/03/18 13:14 Last Admin: 10/04/18 18:24 Dose: 1 appl Hydralazine HCl (Apresoline) 10 mg PO Q4H PRN PRN Reason: SBP ABOVE 150 Stop: 12/03/18 15:08 Hydralazine HCl (Apresoline) 25 mg PO TID [facility] Stop: 12/03/18 20:59 Last Admin: 10/06/18 08:23 Dose: 25 mg Dextrose/Sodium Chloride (D5-0.9%Ns) 1,000 mls @ 60 mls/hr IV .[id number] [facility] Stop: 12/03/18 01:59 Last Admin: 10/06/18 11:12 Dose: 60 mls/hr Ceftriaxone Sodium 1 gm/ (Dextrose) 50 mls @ 100 mls/hr IV Q24H [facility] Stop: 12/04/18 00:59 Last Admin: 10/06/18 00:56 Dose: 100 mls/hr Vancomycin HCl 1.5 gm/ Sodium (Chloride) 500 mls @ 250 mls/hr IV Q12H [facility] Stop: 12/05/18 23:58 Lactobacillus Rhamnosus (Culturelle 15b) 1 each PO DAILY [facility] Stop: 12/04/18 08:59 Last Admin: 10/06/18 08:24 Dose: 1 each Magnesium Hydroxide (Milk Of Magnesia) 30 ml PO HS PRN PRN Reason: Constipation Stop: 12/03/18 15:08 Metoprolol Tartrate (Lopressor) 50 mg PO TID [facility] Stop: 12/03/18 20:59 Last Admin: 10/06/18 08:24 Dose: 50 mg Miscellaneous (Vancomycin Iv Per Pharmacy) 1 ea MC PRN [facility] Stop: 12/05/18 05:44 Rivaroxaban (Xarelto) 10 mg PO DAILY [facility] Stop: 12/06/18 08:59 Senna (Senna) 17.2 mg PO HS [facility] Stop: 12/03/18 20:59 Last Admin: 10/05/18 21:03 Dose: 17.2 mg Sodium Phosphate (Fleet Enema) 135 ml RC Q2D PRN PRN Reason: IF DULCOLAX INEFFECTIVE Stop: 12/03/18 15:08 Tamsulosin HCl (Flomax) 0.4 mg PO HS [facility] Stop: 12/03/18 20:59 Last Admin: 10/05/18 21:03 Dose: 0.4 mg General: Alert, No acute distress HEENT: Atraumatic, EOMI, Mucous membr. moist/pink Neck: Supple, +2 carotid pulse wo bruit Cardiovascular: Regular rate, Normal S1, Normal S2 Lungs: Clear to auscultation Abdomen: Bowel sounds, Soft Extremities: no Edema Neurological: Sensation intact Skin: no Rash Psych/Mental Status: Mood NL Assessment/Plan - Assessment Assessment: CKD Hypercalcemia Gen Body Aches Morbid Obesity Chronic A. fib w/CR BPH S/P CVA Anemia of CKD - Plan Plan: Lab - Result Diagrams 10/05/18 05:20 10/05/18 05:20 Current Medications Acetaminophen (Tylenol Extra Strength) 1,000 mg PO Q4HR PRN PRN Reason: Pain (Moderate) Stop: 12/03/18 15:08 Acetaminophen (Tylenol) 650 mg PO Q4H PRN PRN Reason: Mild Pain or Fever >101 Acetaminophen/Hydrocodone Bitart ([place] 5mg/325mg) 1 tab PO Q6H PRN PRN Reason: Pain (Severe) Stop: 12/03/18 15:08 Amlodipine Besylate (Norvasc) 5 mg PO DAILY [facility] Stop: 12/04/18 08:59 Last Admin: 10/05/18 08:23 Dose: 5 mg Bisacodyl (Dulcolax 10 Mg Supp) 10 mg RC DAILY PRN PRN Reason: Constipation Stop: 12/03/18 15:08 Calamine/Phenol (Calmoseptine) 1 appl TP QID PRN PRN Reason: Skin Irritation Stop: 12/03/18 13:14 Last Admin: 10/04/18 18:24 Dose: 1 appl Hydralazine HCl (Apresoline) 10 mg PO Q4H PRN PRN Reason: SBP ABOVE 150 Stop: 12/03/18 15:08 Hydralazine HCl (Apresoline) 25 mg PO TID [facility] Stop: 12/03/18 20:59 Last Admin: 10/05/18 09:34 Dose: 25 mg Dextrose/Sodium Chloride (D5-0.9%Ns) 1,000 mls @ 60 mls/hr IV .[id number] [facility] Stop: 12/03/18 01:59 Last Admin: 10/04/18 18:23 Dose: 60 mls/hr Ceftriaxone Sodium 1 gm/ (Dextrose) 50 mls @ 100 mls/hr IV Q24H [facility] Stop: 12/04/18 00:59 Last Admin: 10/05/18 01:41 Dose: 100 mls/hr Lactobacillus Rhamnosus (Culturelle 15b) 1 each PO DAILY [facility] Stop: 12/04/18 08:59 Last Admin: 10/05/18 08:23 Dose: 1 each Magnesium Hydroxide (Milk Of Magnesia) 30 ml PO HS PRN PRN Reason: Constipation Stop: 12/03/18 15:08 Metoprolol Tartrate (Lopressor) 50 mg PO TID [facility] Stop: 12/03/18 20:59 Last Admin: 10/05/18 09:34 Dose: 50 mg Miscellaneous (Apixaban [Eliquis]) 2.5 mg PO BID [facility] Stop: 12/03/18 16:59 Senna (Senna) 17.2 mg PO HS [facility] Stop: 12/03/18 20:59 Last Admin: 10/04/18 20:32 Dose: 17.2 mg Sodium Phosphate (Fleet Enema) 135 ml RC Q2D PRN PRN Reason: IF DULCOLAX INEFFECTIVE Stop: 12/03/18 15:08 Tamsulosin HCl (Flomax) 0.4 mg PO HS [facility] Stop: 12/03/18 20:59 Last Admin: 10/04/18 20:33 Dose: 0.4 mg Lab - Result Diagrams 10/05/18 05:20 10/06/18 05:46 Kidney fnc improving w/ BUN/CR of 23/1.3 replace P04; Ca better at 10.3 Renal US no hydro FE Na 2.1% 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) f/u electyrolytes Nutritional Asmnt/Malnutr-PDOC - Dietary Evaluation Malnutrition Findings (Please click <Entered> for more info): Nutritional Asmnt/Malnutrition Start: 10/04/18 15: 58 Text: Status: Complete Freq: Protocol: Document 10/04/18 15:58 LCHENG (Rec: 10/04/18 16:12 [id number]) Nutritional Asmnt/Malnutrition Patient General Information Nutritional Screening High Risk Consult Diagnosis generalized weakness Pertinent Medical Hx/Surgical Hx CVA, heart failure, GERD, SAH, BPH, CKD, Afib, Anemia, hypercholesteremia Subjective Information Consult received for dipika 12 , IAD/non-intact skin on buttocks/sacral areas. Pt seen sleeping in bed at time of visit. Per RN, pt consumed about 50% of lunch today. Current Diet Order/ Nutrition Support [facility] soft ground, [place], C[facility] Pertinent Medications lipitor, D5-0.9%ns, culturelle , senna Pertinent Labs 10/04 Cl 110, BUN 26, Cr 1.4, Ca 10.9, alb 3.9 10/03 Cl 108, BUN 26, Cr 1.5, Ca 11.2, alb 4.0 Nutritional Hx/Data Height 1.73 m Height (Calculated Centimeters) 172.7 Current Weight (lbs) 71.668 kg Weight (Calculated Kilograms) 71.7 Weight (Calculated Grams) 69049.6 [place] Body Weight 154 Body Mass Index (BMI) 24.0 Weight Status Approriate GI Symptoms GI Symptoms None Last BM not indicated Difficult in: None Skin Integrity/Comment: non-intact skin to left/right bottock, chronic wound to right heel Current %PO Fair (50-74%) Estimated Nutritional Goals BEE in Kcals: Using Current wt Calories/Kcals/Kg 25-30 Kcals Calculated 0821-1954 Protein: Using Current wt Protein g/k.8-1 Protein Calculated 58-72 Fluid: ml 1800-2160ml (1ml/kcal) Nutritional Problem 1. Problem Problem altered nutrition related labs Etiology hx of CKD Signs/Symptoms: BUN 26 Cr. 1.4 Malnutrition Alert Is there a minimum of two criteria No selected? Query Text:Check all the applicable criteria. A minimum of two criteria are recommended for diagnosis of either severe or non-severe malnutrition. Malnutrition Related to Morbid Obesity Malnutrition related to morbid obesity No Intervention/Recommendation Comments 1. Add Levon BID for wound healing. 2. Consider removing CCHO diet restriction d/t glucose WNL and no hx of DM. Monitor renal labs and reassess needs for limiting protein intake. 3. Monitor PO intake, wt, labs and skin integrity. If PO intake continue < 50%, will consider adding nutrition supplements. 4. F/U as high risk in 2-3 days, 10/06-10/07 Expected Outcomes/Goals Expected Outcomes/Goals 1. PO intake to meet at least 75% of nutritional needs. 2. Wt stability, skin to remain intact, labs to approach WNL.
[2018-10-07] MEDS: Vancomycin HCl 1.5 GM in Sodium Chloride 0.9% 500 ML IV SCH ×2 (00:27→12:23)
--- NOTE | 2018-10-07 08:40 | Infectious Disease Prog Note ---
Infectious Disease Subjective - Review of Systems Service Date: 10/07/18 Subjective: There is no new change, no fever. Infectious Disease Objective - Results Result Diagrams: 10/05/18 05:20 10/06/18 05:46 Recent Labs: Laboratory Last Values WBC 8.9 Th/cmm (4.8-10.8) 10/05/18 05:20 RBC 6.08 Mil/cmm (4.30-5.70) H 10/05/18 05:20 Hgb 17.1 gm/dL (12-16) 10/05/18 05:20 Hct 51.1 % (41.0-60) 10/05/18 05:20 MCV 84.1 fl (80-99) 10/05/18 05:20 MCH 28.1 pg (26.0-30.0) 10/05/18 05:20 MCHC Differential 33.4 pg (28.0-36.0) 10/05/18 05:20 RDW 15.4 % (11.5-20.0) 10/05/18 05:20 Plt Count 147 Th/cmm (150-400) L 10/05/18 05:20 MPV 10.1 fl 10/05/18 05:20 Neutrophils % 72.5 % (40.0-80.0) 10/05/18 05:20 Lymphocytes % 16.4 % (20.0-50.0) L 10/05/18 05:20 Monocytes % 8.7 % (2.0-10.0) 10/05/18 05:20 Eosinophils % 1.6 % (0.0-5.0) 10/05/18 05:20 Basophils % 0.8 % (0.0-2.0) 10/05/18 05:20 Eos Smear Source URINE 10/05/18 04:05 Eos Smear Total Cells NONE SEEN (NONE SEEN) 10/05/18 04:05 Sodium 139 mEq/L (136-145) 10/06/18 05:46 Potassium 4.1 mEq/L (3.5-5.1) 10/06/18 05:46 Chloride 108 mEq/L (98-107) H 10/06/18 05:46 Carbon Dioxide 23.6 mEq/L (21.0-31.0) 10/06/18 05:46 Anion Gap 11.5 (7.0-16.0) 10/06/18 05:46 BUN 23 mg/dL (7-25) 10/06/18 05:46 Creatinine 1.3 mg/dL (0.7-1.3) 10/06/18 05:46 Est GFR ( Amer) > 60.0 ml/min (>90) 10/06/18 05:46 Est GFR (Non-Af Amer) > 60.0 ml/min 10/06/18 05:46 BUN/Creatinine Ratio 17.7 10/06/18 05:46 Glucose 126 mg/dL (70-105) H 10/06/18 05:46 Calcium 10.3 mg/dL (8.6-10.3) 10/06/18 05:46 Ionized Calcium 6.4 mg/dL (4.5-5.6) H 10/05/18 05:20 Phosphorus 2.4 mg/dL (2.5-5.0) L 10/06/18 05:46 Magnesium 2.0 mg/dL (1.9-2.7) 10/05/18 05:20 Total Bilirubin 1.0 mg/dL (0.3-1.0) 10/04/18 06:10 AST 15 U/L (13-39) 10/04/18 06:10 ALT 24 U/L (7-52) 10/04/18 06:10 Alkaline Phosphatase 93 U/L (34-104) 10/04/18 06:10 Troponin I 0.03 ng/mL (0.01-0.05) 10/03/18 22:20 Total Protein 7.3 gm/dL (6.0-8.3) 10/04/18 06:10 Albumin 3.9 gm/dL (4.2-5.5) L 10/04/18 06:10 Globulin 3.4 gm/dL 10/04/18 06:10 Albumin/Globulin Ratio 1.2 (1.0-1.8) 10/04/18 06:10 Vitamin D 25-Hydroxy 16.2 ng/mL (30.0-100.0) L 10/05/18 06:10 PTH Intact 85 pg/mL (15-65) H 10/05/18 05:20 Urine Source CLEAN C 10/05/18 04:05 Urine Color COLORLESS 10/05/18 04:05 Urine Clarity CLOUDY (CLEAR) 10/05/18 04:05 Urine pH 6.0 (4.6 - 8.0) 10/05/18 04:05 Ur Specific [place] 1.020 (1.005-1.030) 10/05/18 04:05 Urine Protein 100 mg/dL (NEGATIVE) H 10/05/18 04:05 Urine Glucose (UA) NEGATIVE mg/dL (NEGATIVE) 10/05/18 04:05 Urine Ketones NEGATIVE mg/dL (NEGATIVE) 10/05/18 04:05 Urine Blood TRACE (NEGATIVE) 10/05/18 04:05 Urine Nitrate NEGATIVE (NEGATIVE) 10/05/18 04:05 Urine Bilirubin NEGATIVE (NEGATIVE) 10/05/18 04:05 Urine Urobilinogen 0.2 E.U./dL (0.2 - 1.0) 10/05/18 04:05 Ur Leukocyte Esterase MODERATE (NEGATIVE) H 10/05/18 04:05 Urine RBC 2-5 /hpf (0-5) H 10/05/18 04:05 Urine WBC 50-100 /hpf (0-5) H 10/05/18 04:05 Ur Epithelial Cells FEW /lpf (FEW) 10/05/18 04:05 Urine Bacteria 3+ /hpf (NONE SEEN) H 10/05/18 04:05 Ur Oval Fat Bodies ADMISSIONS REPRESENTATIVE 10/04/18 21:50 Ur Random Sodium 126 mmol/L 10/05/18 04:05 Urine Creatinine 60.0 mg/dl (39.0-259.0) 10/05/18 04:05 - Physical Exam Vitals and I&O: Vital Signs Temp 97.2 F 10/07/18 08:32 Pulse 77 10/07/18 08:32 Resp 18 10/07/18 08:32 BP 132/88 10/07/18 08:32 Pulse Ox 93 10/07/18 08:32 Intake & Output 10/06/18 10/07/18 10/07/18 18:59 06:59 18:59 Intake Total 987 790 Balance 987 790 Weight (lbs) 122.47 kg 130 kg Intake: Intake, IV Amount 787 550 D5-0.9%Ns 1,000 ml @ 60 787 mls/hr IV .[id number] [facility] Rx #:[id number] Vancomycin HCl 1.5 gm In 500 Sodium Chloride 0.9% 500 ml @ 250 mls/hr IV Q12H [facility] Rx#:[id number] cefTRIAXone 1 gm In 50 Dextrose 5% 50 ml @ 100 mls/hr IV Q24H [facility] Rx#: [id number] Oral 200 240 Other: # Voids 4 2 # Bowel Movements 2 0 Weight Source Bedscale Bedscale Active Medications: Current Medications Acetaminophen (Tylenol Extra Strength) 1,000 mg PO Q4HR PRN PRN Reason: Pain (Moderate) Stop: 12/03/18 15:08 Acetaminophen (Tylenol) 650 mg PO Q4H PRN PRN Reason: Mild Pain or Fever >101 Acetaminophen/Hydrocodone Bitart ([place] 5mg/325mg) 1 tab PO Q6H PRN PRN Reason: Pain (Severe) Stop: 12/03/18 15:08 Amlodipine Besylate (Norvasc) 5 mg PO DAILY [facility] Stop: 12/04/18 08:59 Last Admin: 10/06/18 08:23 Dose: 5 mg Bisacodyl (Dulcolax 10 Mg Supp) 10 mg RC DAILY PRN PRN Reason: Constipation Stop: 12/03/18 15:08 Calamine/Phenol (Calmoseptine) 1 appl TP QID PRN PRN Reason: Skin Irritation Stop: 12/03/18 13:14 Last Admin: 10/04/18 18:24 Dose: 1 appl Hydralazine HCl (Apresoline) 10 mg PO Q4H PRN PRN Reason: SBP ABOVE 150 Stop: 12/03/18 15:08 Hydralazine HCl (Apresoline) 25 mg PO TID [facility] Stop: 12/03/18 20:59 Last Admin: 10/06/18 21:13 Dose: 25 mg Dextrose/Sodium Chloride (D5-0.9%Ns) 1,000 mls @ 60 mls/hr IV .[id number] [facility] Stop: 12/03/18 01:59 Last Admin: 10/06/18 11:12 Dose: 60 mls/hr Ceftriaxone Sodium 1 gm/ (Dextrose) 50 mls @ 100 mls/hr IV Q24H [facility] Stop: 12/04/18 00:59 Last Infusion: 10/07/18 02:30 Dose: Infused Vancomycin HCl 1.5 gm/ Sodium (Chloride) 500 mls @ 250 mls/hr IV Q12H [facility] Stop: 12/05/18 23:58 Last Infusion: 10/07/18 02:27 Dose: Infused Lactobacillus Rhamnosus (Culturelle 15b) 1 each PO DAILY [facility] Stop: 12/04/18 08:59 Last Admin: 10/06/18 08:24 Dose: 1 each Magnesium Hydroxide (Milk Of Magnesia) 30 ml PO HS PRN PRN Reason: Constipation Stop: 12/03/18 15:08 Metoprolol Tartrate (Lopressor) 50 mg PO TID [facility] Stop: 12/03/18 20:59 Last Admin: 10/06/18 21:14 Dose: 50 mg Miscellaneous (Vancomycin Iv Per Pharmacy) 1 ea MC PRN [facility] Stop: 12/05/18 05:44 Rivaroxaban (Xarelto) 10 mg PO DAILY [facility] Stop: 12/06/18 08:59 Senna (Senna) 17.2 mg PO HS [facility] Stop: 12/03/18 20:59 Last Admin: 10/06/18 21:14 Dose: 17.2 mg Sodium Phosphate (Fleet Enema) 135 ml RC Q2D PRN PRN Reason: IF DULCOLAX INEFFECTIVE Stop: 12/03/18 15:08 Tamsulosin HCl (Flomax) 0.4 mg PO HS [facility] Stop: 12/03/18 20:59 Last Admin: 10/06/18 21:13 Dose: 0.4 mg General: no acute distress, well developed, well nourished HEENT: atraumatic, normocephalic, PERRLA, EOMI Neck: supple, no thyromegaly Cardiovascular: S1S2, regular Lungs: clear to auscultation bilaterally, clear to percussion Abdomen: soft, no tender, no distended Extremities: no cyanosis, no clubbing, no edema Neurological: awake, alert, oriented Skin: intact Infectious Disease Assmt/Plan - Assessment Assessment: 1. UTI.' 2. CN staph in blood. 3. CBVA x3, left sided weakness. 4. HTN. 5. Atrial fibrillation. 6. BPH. 7. Neurogenic bladder. 8. GERD. 9. Hyperlipidemia. 10. CKD stage II. - Plan Plan: DC patient to the SNF , if there is no activity offered by Dr Nagy. Nutritional Asmnt/Malnutr-PDOC - Dietary Evaluation Malnutrition Findings (Please click <Entered> for more info): Nutritional Asmnt/Malnutrition Start: 10/04/18 15: 58 Text: Status: Complete Freq: Protocol: Document 10/04/18 15:58 [email or web address] (Rec: 10/04/18 16:12 [id number]) Nutritional Asmnt/Malnutrition Patient General Information Nutritional Screening High Risk Consult Diagnosis generalized weakness Pertinent Medical Hx/Surgical Hx CVA, heart failure, GERD, SAH, BPH, CKD, Afib, Anemia, hypercholesteremia Subjective Information Consult received for dipika 12 , IAD/non-intact skin on buttocks/sacral areas. Pt seen sleeping in bed at time of visit. Per RN, pt consumed about 50% of lunch today. Current Diet Order/ Nutrition Support [facility] soft ground, [place], CCHO Pertinent Medications lipitor, D5-0.9%ns, culturelle , senna Pertinent Labs 10/04 Cl 110, BUN 26, Cr 1.4, Ca 10.9, alb 3.9 10/03 Cl 108, BUN 26, Cr 1.5, Ca 11.2, alb 4.0 Nutritional Hx/Data Height 1.73 m Height (Calculated Centimeters) 172.7 Current Weight (lbs) 71.668 kg Weight (Calculated Kilograms) 71.7 Weight (Calculated Grams) 23667.6 [place] Body Weight 154 Body Mass Index (BMI) 24.0 Weight Status Approriate GI Symptoms GI Symptoms None Last BM not indicated Difficult in: None Skin Integrity/Comment: non-intact skin to left/right bottock, chronic wound to right heel Current %PO Fair (50-74%) Estimated Nutritional Goals BEE in Kcals: Using Current wt Calories/Kcals/Kg 25-30 Kcals Calculated 3521-1740 Protein: Using Current wt Protein g/k.8-1 Protein Calculated 58-72 Fluid: ml 1800-2160ml (1ml/kcal) Nutritional Problem 1. Problem Problem altered nutrition related labs Etiology hx of CKD Signs/Symptoms: BUN 26 Cr. 1.4 Malnutrition Alert Is there a minimum of two criteria No selected? Query Text:Check all the applicable criteria. A minimum of two criteria are recommended for diagnosis of either severe or non-severe malnutrition. Malnutrition Related to Morbid Obesity Malnutrition related to morbid obesity No Intervention/Recommendation Comments 1. Add Levon BID for wound healing. 2. Consider removing CCHO diet restriction d/t glucose WNL and no hx of DM. Monitor renal labs and reassess needs for limiting protein intake. 3. Monitor PO intake, wt, labs and skin integrity. If PO intake continue < 50%, will consider adding nutrition supplements. 4. F/U as high risk in 2-3 days, 10/06-10/07 Expected Outcomes/Goals Expected Outcomes/Goals 1. PO intake to meet at least 75% of nutritional needs. 2. Wt stability, skin to remain intact, labs to approach WNL.
[2018-10-07] MEDS: Lactobacillus Rhamnosus GG 15 Billion CFU CAP.SPRINK PO SCH (08:50)
--- NOTE | 2018-10-07 09:42 | History & Physical ---
ADMIT DATE: 10/04/2018 INFECTIOUS DISEASE CONSULTATION CHIEF COMPLAINT: Generalized pain and weakness. HISTORY OF PRESENT ILLNESS: The patient is a 48-year-old male with a past medical history of CVA with left-sided weakness, CHF, GERD, SAH, BPH, CKD stage 2, AFib, anemia, hypercholesterolemia, brought in from nursing facility for generalized pain. It was associated with weakness. On initial evaluation, his vitals were stable with mild elevation of blood pressure. However, regular lab work suggested WBC count of 6200. Urinalysis suggested pyuria and bacteriuria. The ER physician called me to admit the patient with a complicated UTI. It was noted that the patient has incontinence of the urine. The patient had indwelling Huddleston catheter in the past, which was absent this time. The patient was unable to control his urination. He was incontinent of urine. Urology consultation was reviewed from the previous admission and it was suggested to change Huddleston catheter every 3 weeks for neurogenic bladder. The patient was admitted and continued on his home medication. He was started on Rocephin to treat his UTI. PAST MEDICAL HISTORY: Hypertension, history of CVA with left-sided weakness and hemiparesis. The patient also has a history of CVA three times. Congestive heart failure, dyslipidemia, peptic ulcer disease, GERD, CKD stage 2, chronic anemia, atrial fibrillation, and history of subarachnoid hemorrhage. FAMILY HISTORY: Unremarkable. SOCIAL HISTORY: The patient lives at nursing facility. No history of smoking, alcohol or drug use. MEDICATIONS: As per medication reconciliation sheet. ALLERGIES: NKDA. PAST SURGICAL HISTORY: Includes none significant. REVIEW OF SYSTEMS: GENERAL: The patient is a poor historian, unable to give any history. The patient had fever at the nursing facility as per the record; however, there is no fever, no chills since this hospital stay. The patient has no diaphoresis. Although, he has generalized body pain and weakness. The patient had a fever at the nursing facility; otherwise, no fever since his hospital stay. HEENT: No diplopia, no photophobia, no sore throat. RESPIRATORY: No cough, no shortness of breath. CARDIOVASCULAR: No chest pain or palpitation. GASTROINTESTINAL: No nausea, no vomiting, no diarrhea, no constipation. GENITOURINARY: No dysuria. The patient is incontinent of the urine. Had a history of neurogenic bladder requiring indwelling Huddleston catheter. CENTRAL NERVOUS SYSTEM: No headache, no dizziness. No focal weakness. PHYSICAL EXAMINATION: VITAL SIGNS: Shows temperature is 99.1 degrees Fahrenheit, pulse 70, respiration 20, blood pressure 136/83. GENERAL: The patient is comfortable, lying in the bed, not in acute distress. HEENT: Head is normocephalic, atraumatic. Oral cavity: Moist and pink tongue. Eyes: Pallor is present, no icterus. Pupils PERRLA, EOMI. NECK: Supple, no JVD, no carotid bruit. Trachea in midline. CHEST: Bilateral vesicular breath sounds. No crackles or wheezing. HEART: S1 and S2 within normal limits. Regular rhythm. No murmur, no gallops. ABDOMEN: Soft, nontender, and nondistended. Bowel sounds are present. EXTREMITIES: No cyanosis, no clubbing, no edema. NEUROLOGIC: Alert, awake with left-sided weakness, hemiplegia. LABORATORY DATA: Current lab shows WBC count 7500, hemoglobin 17.1, hematocrit 52.4, platelets are 162,000, neutrophils 59.1%. Sodium is 141, potassium 4.2, chloride 110, bicarbonate is 24, BUN is 26, creatinine is 1.4, glucose is 94. Urinalysis showed moderate leukoesterase, WBC 10-25, moderate bacteria. Blood cultures are negative so far. Urine culture is pending. IMPRESSION: 1. Urinary tract infection. 2. Hypertension. 3. Atrial fibrillation. 4. Benign prostatic hypertrophy. 5. Gastroesophageal reflux disease. 6. Hyperlipidemia. 7. Cerebrovascular accident with left-sided hemiparesis. 8. History of chronic kidney disease, stage 2-3. PLAN: We will call Urology consultation ____ use of indwelling Huddleston catheter for his neurogenic bladder or suprapubic catheterization. Meanwhile wait for the urine culture report. He started Rocephin. Will apply SCDs. Renal consultation was called. Nephrology consultation with Dr. Chilel this was also called. JOB# [id number]
--- NOTE | 2018-10-07 11:36 | Discharge Summary ---
DATE OF DISCHARGE: 10/07/2018 CHIEF COMPLAINT: Generalized weakness and pain. HISTORY OF PRESENT ILLNESS AND HOSPITAL COURSE: The patient is a 48-year-old male with past medical history of CVA with left-sided weakness, CHF, GERD, SAH, BPH, CKD stage 2-3, AFib, anemia, hypercholesterolemia, brought in from a nursing facility for generalized pain and associated weakness. On initial evaluation, his vitals were stable. His WBC count was within normal limits. Urinalysis showed pyuria and bacteriuria. So, the patient was admitted with complicated UTI. It was also noted that the patient was incontinent of urine. The patient was treated with Rocephin. Consultations were called, Urology consultation Dr. Nagy and Dr. Chilel for renal insufficiency. Discharge condition stable. DISCHARGE DIAGNOSES: 1. Urinary tract infection. 2. Generalized weakness. 3. Hypertension. 4. Atrial fibrillation. 5. Benign prostatic hypertrophy. 6. Gastroesophageal reflux disease. 7. Hyperlipidemia. 8. Cerebrovascular accident. 9. Neurogenic bladder. 10. Chronic kidney disease stage 2-3. DISCHARGE CONDITION: Stable. DISCHARGE DISPOSITION: To SNF under Dr. Harry. DISCHARGE MEDICATIONS: As per medication reconciliation sheet. Antibiotic chavez, we will treat UTI with Cipro. JOB# [id number]
--- NOTE | 2018-10-07 13:31 | General Progress Note ---
Subjective - Review of Systems Service Date: 10/07/18 Subjective: min. body discomfort Objective - Results Result Diagrams: 10/05/18 05:20 10/06/18 05:46 Recent Labs: Laboratory Last Values WBC 8.9 Th/cmm (4.8-10.8) 10/05/18 05:20 RBC 6.08 Mil/cmm (4.30-5.70) H 10/05/18 05:20 Hgb 17.1 gm/dL (12-16) 10/05/18 05:20 Hct 51.1 % (41.0-60) 10/05/18 05:20 MCV 84.1 fl (80-99) 10/05/18 05:20 MCH 28.1 pg (26.0-30.0) 10/05/18 05:20 MCHC Differential 33.4 pg (28.0-36.0) 10/05/18 05:20 RDW 15.4 % (11.5-20.0) 10/05/18 05:20 Plt Count 147 Th/cmm (150-400) L 10/05/18 05:20 MPV 10.1 fl 10/05/18 05:20 Neutrophils % 72.5 % (40.0-80.0) 10/05/18 05:20 Lymphocytes % 16.4 % (20.0-50.0) L 10/05/18 05:20 Monocytes % 8.7 % (2.0-10.0) 10/05/18 05:20 Eosinophils % 1.6 % (0.0-5.0) 10/05/18 05:20 Basophils % 0.8 % (0.0-2.0) 10/05/18 05:20 Eos Smear Source URINE 10/05/18 04:05 Eos Smear Total Cells NONE SEEN (NONE SEEN) 10/05/18 04:05 Sodium 139 mEq/L (136-145) 10/06/18 05:46 Potassium 4.1 mEq/L (3.5-5.1) 10/06/18 05:46 Chloride 108 mEq/L (98-107) H 10/06/18 05:46 Carbon Dioxide 23.6 mEq/L (21.0-31.0) 10/06/18 05:46 Anion Gap 11.5 (7.0-16.0) 10/06/18 05:46 BUN 23 mg/dL (7-25) 10/06/18 05:46 Creatinine 1.3 mg/dL (0.7-1.3) 10/06/18 05:46 Est GFR ( Amer) > 60.0 ml/min (>90) 10/06/18 05:46 Est GFR (Non-Af Amer) > 60.0 ml/min 10/06/18 05:46 BUN/Creatinine Ratio 17.7 10/06/18 05:46 Glucose 126 mg/dL (70-105) H 10/06/18 05:46 Calcium 10.3 mg/dL (8.6-10.3) 10/06/18 05:46 Ionized Calcium 6.4 mg/dL (4.5-5.6) H 10/05/18 05:20 Phosphorus 2.0 mg/dL (2.5-5.0) L 10/07/18 09:30 Magnesium 2.0 mg/dL (1.9-2.7) 10/05/18 05:20 Total Bilirubin 1.0 mg/dL (0.3-1.0) 10/04/18 06:10 AST 15 U/L (13-39) 10/04/18 06:10 ALT 24 U/L (7-52) 10/04/18 06:10 Alkaline Phosphatase 93 U/L (34-104) 10/04/18 06:10 Troponin I 0.03 ng/mL (0.01-0.05) 10/03/18 22:20 Total Protein 7.3 gm/dL (6.0-8.3) 10/04/18 06:10 Albumin 3.9 gm/dL (4.2-5.5) L 10/04/18 06:10 Globulin 3.4 gm/dL 10/04/18 06:10 Albumin/Globulin Ratio 1.2 (1.0-1.8) 10/04/18 06:10 Vitamin D 25-Hydroxy 16.2 ng/mL (30.0-100.0) L 10/05/18 06:10 PTH Intact 85 pg/mL (15-65) H 10/05/18 05:20 Urine Source CLEAN C 10/05/18 04:05 Urine Color COLORLESS 10/05/18 04:05 Urine Clarity CLOUDY (CLEAR) 10/05/18 04:05 Urine pH 6.0 (4.6 - 8.0) 10/05/18 04:05 Ur Specific [place] 1.020 (1.005-1.030) 10/05/18 04:05 Urine Protein 100 mg/dL (NEGATIVE) H 10/05/18 04:05 Urine Glucose (UA) NEGATIVE mg/dL (NEGATIVE) 10/05/18 04:05 Urine Ketones NEGATIVE mg/dL (NEGATIVE) 10/05/18 04:05 Urine Blood TRACE (NEGATIVE) 10/05/18 04:05 Urine Nitrate NEGATIVE (NEGATIVE) 10/05/18 04:05 Urine Bilirubin NEGATIVE (NEGATIVE) 10/05/18 04:05 Urine Urobilinogen 0.2 E.U./dL (0.2 - 1.0) 10/05/18 04:05 Ur Leukocyte Esterase MODERATE (NEGATIVE) H 10/05/18 04:05 Urine RBC 2-5 /hpf (0-5) H 10/05/18 04:05 Urine WBC 50-100 /hpf (0-5) H 10/05/18 04:05 Ur Epithelial Cells FEW /lpf (FEW) 10/05/18 04:05 Urine Bacteria 3+ /hpf (NONE SEEN) H 10/05/18 04:05 Ur Oval Fat Bodies [employer] 10/04/18 21:50 Ur Random Sodium 126 mmol/L 10/05/18 04:05 Urine Creatinine 60.0 mg/dl (39.0-259.0) 10/05/18 04:05 - Physical Exam Vitals and I&O: Vital Signs Temp 97.3 F 10/07/18 12:43 Pulse 81 10/07/18 12:43 Resp 18 10/07/18 12:43 BP 129/76 10/07/18 12:43 Pulse Ox 94 10/07/18 12:43 Intake & Output 10/06/18 10/07/18 10/07/18 18:59 06:59 18:59 Intake Total 987 790 Balance 987 790 Weight (lbs) 122.47 kg 130 kg Intake: Intake, IV Amount 787 550 D5-0.9%Ns 1,000 ml @ 60 787 mls/hr IV .[id number] [facility] Rx #:[id number] Vancomycin HCl 1.5 gm In 500 Sodium Chloride 0.9% 500 ml @ 250 mls/hr IV Q12H [facility] Rx#:[id number] cefTRIAXone 1 gm In 50 Dextrose 5% 50 ml @ 100 mls/hr IV Q24H [facility] Rx#: [id number] Oral 200 240 Other: # Voids 4 2 # Bowel Movements 2 0 Weight Source Bedscale Bedscale Active Medications: Current Medications Acetaminophen (Tylenol Extra Strength) 1,000 mg PO Q4HR PRN PRN Reason: Pain (Moderate) Stop: 12/03/18 15:08 Acetaminophen (Tylenol) 650 mg PO Q4H PRN PRN Reason: Mild Pain or Fever >101 Acetaminophen/Hydrocodone Bitart (Morris 5mg/325mg) 1 tab PO Q6H PRN PRN Reason: Pain (Severe) Stop: 12/03/18 15:08 Amlodipine Besylate (Norvasc) 5 mg PO DAILY [facility] Stop: 12/04/18 08:59 Last Admin: 10/07/18 08:49 Dose: 5 mg Bisacodyl (Dulcolax 10 Mg Supp) 10 mg RC DAILY PRN PRN Reason: Constipation Stop: 12/03/18 15:08 Calamine/Phenol (Calmoseptine) 1 appl TP QID PRN PRN Reason: Skin Irritation Stop: 12/03/18 13:14 Last Admin: 10/04/18 18:24 Dose: 1 appl Ciprofloxacin (Cipro) 250 mg PO BID [facility] Stop: 10/12/18 08:59 Last Admin: 10/07/18 10:53 Dose: 250 mg Hydralazine HCl (Apresoline) 10 mg PO Q4H PRN PRN Reason: SBP ABOVE 150 Stop: 12/03/18 15:08 Hydralazine HCl (Apresoline) 25 mg PO TID [facility] Stop: 12/03/18 20:59 Last Admin: 10/07/18 08:49 Dose: 25 mg Dextrose/Sodium Chloride (D5-0.9%Ns) 1,000 mls @ 60 mls/hr IV .[id number] [facility] Stop: 12/03/18 01:59 Last Admin: 10/06/18 11:12 Dose: 60 mls/hr Vancomycin HCl 1.5 gm/ Sodium (Chloride) 500 mls @ 250 mls/hr IV Q12H [facility] Stop: 12/05/18 23:58 Last Admin: 10/07/18 12:23 Dose: 250 mls/hr Lactobacillus Rhamnosus (Culturelle 15b) 1 each PO DAILY [facility] Stop: 12/04/18 08:59 Last Admin: 10/07/18 08:50 Dose: 1 each Magnesium Hydroxide (Milk Of Magnesia) 30 ml PO HS PRN PRN Reason: Constipation Stop: 12/03/18 15:08 Metoprolol Tartrate (Lopressor) 50 mg PO TID [facility] Stop: 12/03/18 20:59 Last Admin: 10/07/18 08:50 Dose: 50 mg Miscellaneous (Vancomycin Iv Per Pharmacy) 1 ea MC PRN [facility] Stop: 12/05/18 05:44 Rivaroxaban (Xarelto) 10 mg PO DAILY [facility] Stop: 12/06/18 08:59 Last Admin: 10/07/18 08:50 Dose: 10 mg Senna (Senna) 17.2 mg PO HS [facility] Stop: 12/03/18 20:59 Last Admin: 10/06/18 21:14 Dose: 17.2 mg Sodium Phosphate (Fleet Enema) 135 ml RC Q2D PRN PRN Reason: IF DULCOLAX INEFFECTIVE Stop: 12/03/18 15:08 Tamsulosin HCl (Flomax) 0.4 mg PO HS [facility] Stop: 12/03/18 20:59 Last Admin: 10/06/18 21:13 Dose: 0.4 mg General: Alert, No acute distress HEENT: Atraumatic, EOMI, Mucous membr. moist/pink Neck: Supple, +2 carotid pulse wo bruit Cardiovascular: Regular rate, Normal S1, Normal S2 Lungs: Clear to auscultation Abdomen: Bowel sounds, Soft Extremities: no Edema Neurological: Sensation intact Skin: no Rash Psych/Mental Status: Mood NL Assessment/Plan - Assessment Assessment: CKD Hypercalcemia Gen Body Aches Morbid Obesity Chronic A. fib w/CR BPH S/P CVA Anemia of CKD - Plan Plan: Lab - Result Diagrams 10/05/18 05:20 10/05/18 05:20 Current Medications Acetaminophen (Tylenol Extra Strength) 1,000 mg PO Q4HR PRN PRN Reason: Pain (Moderate) Stop: 12/03/18 15:08 Acetaminophen (Tylenol) 650 mg PO Q4H PRN PRN Reason: Mild Pain or Fever >101 Acetaminophen/Hydrocodone Bitart (Morris 5mg/325mg) 1 tab PO Q6H PRN PRN Reason: Pain (Severe) Stop: 12/03/18 15:08 Amlodipine Besylate (Norvasc) 5 mg PO DAILY [facility] Stop: 12/04/18 08:59 Last Admin: 10/05/18 08:23 Dose: 5 mg Bisacodyl (Dulcolax 10 Mg Supp) 10 mg RC DAILY PRN PRN Reason: Constipation Stop: 12/03/18 15:08 Calamine/Phenol (Calmoseptine) 1 appl TP QID PRN PRN Reason: Skin Irritation Stop: 12/03/18 13:14 Last Admin: 10/04/18 18:24 Dose: 1 appl Hydralazine HCl (Apresoline) 10 mg PO Q4H PRN PRN Reason: SBP ABOVE 150 Stop: 12/03/18 15:08 Hydralazine HCl (Apresoline) 25 mg PO TID [facility] Stop: 12/03/18 20:59 Last Admin: 10/05/18 09:34 Dose: 25 mg Dextrose/Sodium Chloride (D5-0.9%Ns) 1,000 mls @ 60 mls/hr IV .[id number] [facility] Stop: 12/03/18 01:59 Last Admin: 10/04/18 18:23 Dose: 60 mls/hr Ceftriaxone Sodium 1 gm/ (Dextrose) 50 mls @ 100 mls/hr IV Q24H [facility] Stop: 12/04/18 00:59 Last Admin: 10/05/18 01:41 Dose: 100 mls/hr Lactobacillus Rhamnosus (Culturelle 15b) 1 each PO DAILY [facility] Stop: 12/04/18 08:59 Last Admin: 10/05/18 08:23 Dose: 1 each Magnesium Hydroxide (Milk Of Magnesia) 30 ml PO HS PRN PRN Reason: Constipation Stop: 12/03/18 15:08 Metoprolol Tartrate (Lopressor) 50 mg PO TID [facility] Stop: 12/03/18 20:59 Last Admin: 10/05/18 09:34 Dose: 50 mg Miscellaneous (Apixaban [Eliquis]) 2.5 mg PO BID [facility] Stop: 02/09/19 16:59 Senna (Senna) 17.2 mg PO HS [facility] Stop: 12/03/18 20:59 Last Admin: 10/04/18 20:32 Dose: 17.2 mg Sodium Phosphate (Fleet Enema) 135 ml RC Q2D PRN PRN Reason: IF DULCOLAX INEFFECTIVE Stop: 12/03/18 15:08 Tamsulosin HCl (Flomax) 0.4 mg PO HS [facility] Stop: 12/03/18 20:59 Last Admin: 10/04/18 20:33 Dose: 0.4 mg Lab - Result Diagrams 10/05/18 05:20 10/06/18 05:46 Kidney fnc improving w/ BUN/CR of 23/1.3 replace P04; Ca better at 10.3 Renal US no hydro FE Na 2.1% 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) f/u electyrolytes possible DC today Nutritional Asmnt/Malnutr-PDOC - Dietary Evaluation Malnutrition Findings (Please click <Entered> for more info): Nutritional Asmnt/Malnutrition Start: 10/04/18 15: 58 Text: Status: Complete Freq: Protocol: Document 10/04/18 15:58 LCHENG (Rec: 10/04/18 16:12 LCHENG [id number]) Nutritional Asmnt/Malnutrition Patient General Information Nutritional Screening High Risk Consult Diagnosis generalized weakness Pertinent Medical Hx/Surgical Hx CVA, heart failure, GERD, SAH, BPH, CKD, Afib, Anemia, hypercholesteremia Subjective Information Consult received for dipika 12 , IAD/non-intact skin on buttocks/sacral areas. Pt seen sleeping in bed at time of visit. Per RN, pt consumed about 50% of lunch today. Current Diet Order/ Nutrition Support [facility] soft ground, [place], CCHO Pertinent Medications lipitor, D5-0.9%ns, culturelle , senna Pertinent Labs 10/04 Cl 110, BUN 26, Cr 1.4, Ca 10.9, alb 3.9 10/03 Cl 108, BUN 26, Cr 1.5, Ca 11.2, alb 4.0 Nutritional Hx/Data Height 1.73 m Height (Calculated Centimeters) 172.7 Current Weight (lbs) 71.668 kg Weight (Calculated Kilograms) 71.7 Weight (Calculated Grams) 90896.6 [place] Body Weight 154 Body Mass Index (BMI) 24.0 Weight Status Approriate GI Symptoms GI Symptoms None Last BM not indicated Difficult in: None Skin Integrity/Comment: non-intact skin to left/right bottock, chronic wound to right heel Current %PO Fair (50-74%) Estimated Nutritional Goals BEE in Kcals: Using Current wt Calories/Kcals/Kg 25-30 Kcals Calculated 7588-0783 Protein: Using Current wt Protein g/k.8-1 Protein Calculated 58-72 Fluid: ml 1800-2160ml (1ml/kcal) Nutritional Problem 1. Problem Problem altered nutrition related labs Etiology hx of CKD Signs/Symptoms: BUN 26 Cr. 1.4 Malnutrition Alert Is there a minimum of two criteria No selected? Query Text:Check all the applicable criteria. A minimum of two criteria are recommended for diagnosis of either severe or non-severe malnutrition. Malnutrition Related to Morbid Obesity Malnutrition related to morbid obesity No Intervention/Recommendation Comments 1. Add Levon BID for wound healing. 2. Consider removing CCHO diet restriction d/t glucose WNL and no hx of DM. Monitor renal labs and reassess needs for limiting protein intake. 3. Monitor PO intake, wt, labs and skin integrity. If PO intake continue < 50%, will consider adding nutrition supplements. 4. F/U as high risk in 2-3 days, 10/06-10/07 Expected Outcomes/Goals Expected Outcomes/Goals 1. PO intake to meet at least 75% of nutritional needs. 2. Wt stability, skin to remain intact, labs to approach WNL.
== END 2018-10-07 16:40 | DRG 463 ==
LOC: ER 21:24 → MSI 10-04 00:20
PROVIDERS: ADMIT Internal Medicine Infectious Disease; ATTEND Internal Medicine Infectious Disease
DX: N10 Acute pyelonephritis (principal); J96.10 Chronic respiratory failure, unspecified whether with hypoxia or hypercapnia; E66.01 Morbid (severe) obesity due to excess calories; I50.9 Heart failure, unspecified; E83.52 Hypercalcemia; I13.0 Hypertensive heart and chronic kidney disease with heart failure and stage 1 through stage 4 chronic kidney disease, or unspecified chronic kidney disease; N18.3 Chronic kidney disease, stage 3 (moderate); N40.0 Benign prostatic hyperplasia without lower urinary tract symptoms; K21.9 Gastro-esophageal reflux disease without esophagitis; Z68.41 Body mass index [BMI] 40.0-44.9, adult; D64.9 Anemia, unspecified; E78.00 Pure hypercholesterolemia, unspecified; I48.2 Chronic atrial fibrillation; I69.354 Hemiplegia and hemiparesis following cerebral infarction affecting left non-dominant side; K27.9 Peptic ulcer, site unspecified, unspecified as acute or chronic, without hemorrhage or perforation; D63.1 Anemia in chronic kidney disease; N31.2 Flaccid neuropathic bladder, not elsewhere classified; R32 Unspecified urinary incontinence
CPT/HCPCS: 36415-UA; 71045-TC; 76770-TC; 80048-TC; 80053-TC; 81001-TC; 81015-TC; 82043-90; 82306-90; 82330-90; 82570-TC; 83735-TC; 83970-90; 84100-TC; 84300-TC; 84484-TC; 85025-TC; 87086-90; 90799; 93005; J0696; J3370; J7040; J7042; Z7610